=== PATIENT | male | born 1985 | race Caucasian/White ===

== ENCOUNTER 2019-03-02 20:53 | Emergency (ER) | payer MEDICAID, MEDICARE, OTHER ==
[~2019-03-02] VITALS: Ht 175.3 cm; Wt 99.8 kg
--- NOTE | 2019-03-02 21:21 | ED General ---
General Stated Complaint: PSYCH EVAL Source of Information: Patient Exam Limitations: No Limitations History of Present Illness Date Seen by Provider: Mar 02, 2019 Time Seen by Provider: 21:16 Initial Comments Very pleasant gentleman presents to the emergency room with request for psychiatric evaluation. He states that he's been feeling suicidal for about one week. He plans to take all of his pills at once. He is currently living with his uncle in [facility] where he has been performed months now, formerly from [facility]. He is a history of depression and he also states he has bipolar 1 disorder. He saw primary care for this increasing depression yesterday and was started on lithium for it. He was advised by primary care if his symptoms worsened he should present to the emergency room so he comes in tonight because of worsening suicidal thoughts. He denies any alcohol or substance abuse, occasionally smokes marijuana. He was hospitalized for inpatient [facility] in [place] about one year ago for depression and suicidal thoughts. He relates this worsening depression to a recent breakup, also states "I feel like I keep getting kicked and cant get back up on my feet, Im 33, no insurance, on disability". 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 He lives at home and is independent and able to take care of himself. Timing/Duration: 1 Week, Getting Worse Severity: Moderate Associated Systoms: Denies Symptoms Allergies and Home Medications Allergies Coded Allergies: Sulfa (Sulfonamide Antibiotics) (Verified Allergy, Unknown, 03/02/19) latex (Verified Allergy, Unknown, 03/02/19) Patient Home Medication List Home Medication List Reviewed: Yes Review of Systems Review of Systems Constitutional: see HPI EENTM: see HPI Respiratory: no symptoms reported Cardiovascular: no symptoms reported Genitourinary: no symptoms reported Musculoskeletal: no symptoms reported Skin: no symptoms reported Psychiatric/Neurological: See HPI, Depressed Past Bwrdkev-Jnwixn-Hsrroa Hx Patient Social History Recent Foreign Travel: No Contact w/Someone Who Travel: No Physical Exam Vital Signs Capillary Refill : Height, Weight, BMI Height: '" Weight: lbs. oz. kg; BMI Method: General Appearance: No Apparent Distress, WD/WN, Other (very pleasant, co operative, appreciative of care) Eyes: Right Eye Other (strabismus with right eye deviated laterally); Bilateral Eye Normal Inspection, Bilateral Eye PERRL, Bilateral Eye EOMI HEENT: TMs Normal, Normal ENT Inspection Neck: Full Range of Motion, Normal Inspection Respiratory: No Accessory Muscle Use, No Respiratory Distress Cardiovascular: Regular Rate, Rhythm, Normal Peripheral Pulses Gastrointestinal: Normal Bowel Sounds, Non Tender, Soft Extremity: Normal Capillary Refill, Normal Inspection Neurologic/Psychiatric: Alert, Oriented x3, Other (pleasant cooperative and appreciative of care) Skin: Normal Color, Warm/Dry Progress/Results/Core Measures Suspected Sepsis SIRS Temperature: Pulse: Respiratory Rate: Laboratory Tests 03/02/19 21:25: White Blood Count 11.8H Blood Pressure / Mean: Laboratory Tests 03/02/19 21:25: Creatinine 0.86, Platelet Count 229, Total Bilirubin 0.4 Results/Orders Lab Results Laboratory Tests Test 03/02/19 21:25 03/02/19 21:30 Range/Units White Blood Count 11.8 H 4.3-11.0 10^3/uL Red Blood Count 5.45 4.35-5.85 10^6/uL Hemoglobin 16.7 13.3-17.7 G/DL Hematocrit 47 40-54 % Mean Corpuscular Volume 86 80-99 FL Mean Corpuscular Hemoglobin 31 25-34 PG Mean Corpuscular Hemoglobin Concent 36 32-36 G/DL Red Cell Distribution Width 12.8 10.0-14.5 % Platelet Count 229 130-400 10^3/uL Mean Platelet Volume 10.3 7.4-10.4 FL Neutrophils (%) (Auto) 61 42-75 % Lymphocytes (%) (Auto) 24 12-44 % Monocytes (%) (Auto) 10 0-12 % Eosinophils (%) (Auto) 5 0-10 % Basophils (%) (Auto) 0 0-10 % Neutrophils # (Auto) 7.2 1.8-7.8 X 10^3 Lymphocytes # (Auto) 2.9 1.0-4.0 X 10^3 Monocytes # (Auto) 1.1 H 0.0-1.0 X 10^3 Eosinophils # (Auto) 0.6 H 0.0-0.3 10^3/uL Basophils # (Auto) 0.0 0.0-0.1 10^3/uL Sodium Level 139 135-145 MMOL/L Potassium Level 3.6 3.6-5.0 MMOL/L Chloride Level 106 98-107 MMOL/L Carbon Dioxide Level 21 21-32 MMOL/L Anion Gap 12 5-14 MMOL/L Blood Urea Nitrogen 9 7-18 MG/DL Creatinine 0.86 0.60-1.30 MG/DL Estimat Glomerular Filtration Rate > 60 BUN/Creatinine Ratio 10 Glucose Level 99 70-105 MG/DL Calcium Level 10.1 8.5-10.1 MG/DL Corrected Calcium 9.7 8.5-10.1 MG/DL Total Bilirubin 0.4 0.1-1.0 MG/DL Aspartate Amino Transf (AST/SGOT) 13 5-34 U/L Alanine Aminotransferase (ALT/SGPT) 18 0-55 U/L Alkaline Phosphatase 77 40-136 U/L Total Protein 7.6 6.4-8.2 GM/DL Albumin 4.5 3.2-4.5 GM/DL Salicylates Level < 5.0 L 5.0-20.0 MG/DL Acetaminophen Level < 10 L 10-30 UG/ML Serum Alcohol < 10 <10 MG/DL Urine Color YELLOW Urine Clarity CLEAR Urine pH 7 5-9 Urine Specific [place] 1.010 L 1.016-1.022 Urine Protein NEGATIVE NEGATIVE Urine Glucose (UA) NEGATIVE NEGATIVE Urine Ketones NEGATIVE NEGATIVE Urine Nitrite NEGATIVE NEGATIVE Urine Bilirubin NEGATIVE NEGATIVE Urine Urobilinogen NORMAL NORMAL MG/DL Urine Leukocyte Esterase 1+ H NEGATIVE Urine RBC (Auto) NEGATIVE NEGATIVE Urine RBC NONE /HPF Urine WBC NONE /HPF Urine Squamous Epithelial Cells RARE /HPF Urine Crystals NONE /LPF Urine Bacteria NEGATIVE /HPF Urine Casts NONE /LPF Urine Mucus NEGATIVE /LPF Urine Culture Indicated NO Urine Opiates Screen NEGATIVE NEGATIVE Urine Oxycodone Screen NEGATIVE NEGATIVE Urine Methadone Screen NEGATIVE NEGATIVE Urine Propoxyphene Screen NEGATIVE NEGATIVE Urine Barbiturates Screen NEGATIVE NEGATIVE Ur Tricyclic Antidepressants Screen NEGATIVE NEGATIVE Urine Phencyclidine Screen NEGATIVE NEGATIVE Urine Amphetamines Screen NEGATIVE NEGATIVE Urine Methamphetamines Screen NEGATIVE NEGATIVE Urine Benzodiazepines Screen NEGATIVE NEGATIVE Urine Cocaine Screen NEGATIVE NEGATIVE Urine Cannabinoids Screen POSITIVE H NEGATIVE My Orders Orders - ZANE DAY DEHYDRATOR OPERATOR Cbc With Automated Diff (03/02/19 21:14) Salicylate (03/02/19 21:14) Acetaminophen (03/02/19 21:14) Ekg Tracing (03/02/19 21:14) Alcohol (03/02/19 21:14) [place] Level (03/02/19 21:14) Comprehensive Metabolic Panel (03/02/19 21:14) Ua Culture If Indicated (03/02/19 21:14) Drug Screen Stat (Urine) (03/02/19 21:14) Vital Signs/I&O Capillary Refill : Departure Communication (Admissions) [id number] have spoken with Dr. Arias [facility] in [place]. She agrees to accept the patient. I'll transport via [facility] secure psychiatric transport. Impression Primary Impression: Suicidal ideations Additional Impression: Depression Qualified Codes: F33.9 - Major depressive disorder, recurrent, unspecified Disposition: 65 XFER TO PSYCH HOSP/UNIT Condition: Stable Departure-Patient Inst. Referrals: [facility]/ARACELI (PCP) Primary Care Physician ALIYA MCALLISTER (Family) Primary Care Physician ZANE DAY APRN Mar 02, 2019 21:21
[2019-03-02 21:36] LABS: BASOPHILS % (AUTO) 0 % (0-10); EOSINOPHILS # (AUTO) 0.6 10^3/uL (0.0-0.3); EOSINOPHILS % (AUTO) 5 % (0-10); HEMATOCRIT 47 % (40-54); HEMOGLOBIN 16.7 G/DL (13.3-17.7); LYMPHOCYTES # (AUTO) 2.9 X 10^3 (1.0-4.0); LYMPHOCYTES % (AUTO) 24 % (12-44); MEAN CORPUSCULAR HEMOGLOBIN 31 PG (25-34); MEAN CORPUSCULAR HGB CONC 36 G/DL (32-36); MEAN CORPUSCULAR VOLUME 86 FL (80-99); MEAN PLATELET VOLUME 10.3 FL (7.4-10.4); MONOCYTES # (AUTO) 1.1 X 10^3 (0.0-1.0); MONOCYTES % (AUTO) 10 % (0-12); NEUTROPHILS # (AUTO) 7.2 X 10^3 (1.8-7.8); NEUTROPHILS % (AUTO) 61 % (42-75); PLATELET COUNT 229 10^3/uL (130-400); RED CELL DISTRIBUTION WIDTH 12.8 % (10.0-14.5); WHITE BLOOD COUNT 11.8 10^3/uL (4.3-11.0)
[2019-03-02 21:43] LABS: BILIRUBIN,URINE NEGATIVE (NEGATIVE); CLARITY,URINE CLEAR; COLOR,URINE YELLOW; GLUCOSE, URINE (UA) NEGATIVE (NEGATIVE); KETONES,URINE NEGATIVE (NEGATIVE); LEUKOCYTE ESTERASE ,URINE 1+ (NEGATIVE); NITRITE,URINE NEGATIVE (NEGATIVE); PH,URINE 7 (5-9); PROTEIN,URINE NEGATIVE (NEGATIVE); UROBILINOGEN,URINE NORMAL (NORMAL)
[2019-03-02 21:50] LABS: BACTERIA,URINE NEGATIVE /HPF; SQUAMOUS EPITHELIAL CELL,UR RARE /HPF
--- OUTSIDE RECORDS SUMMARY | 2019-03-02 21:52 | XMS REPORT ---
Author Scooter Awad Organization [facility] Address [address] [place], [place] [id number] Care Team Providers Care Trade Clerk Name Role Phone Scooter Cartagena PCP Scooter Cartagena PreferredProvider Allergies and Adverse Reactions Name Reaction Notes SULFA (SULFONAMIDE ANTIBIOTICS) Plan of Treatment Planned Activity Comments Planned Date Planned Time Plan/Goal MRI JOINT OF UPPER EXT ANY JOINT W/O CON 03/23/2018 12:00 AM Medications Active Name Start Date Estimated Completion Date SIG Comments venlafaxine 75 mg oral capsule,extended release 24hr 03/11/2018 06/09/2018 take 1 capsule (75 mg) by oral route once daily for 30 days Zyprexa 5 mg oral tablet 03/11/2018 06/09/2018 take 1 tablet (5 mg) by oral route once daily in the evening for 30 days diclofenac sodium 75 mg oral tablet,delayed release (DR/EC) 03/23/2018 07/21/2018 take 1 tablet (75 mg) by oral route 2 times per day for 30 days Name Start Date Expiration Date SIG Comments Augmentin 875-125 mg oral tablet 04/21/2018 04/28/2018 take 1 tablet by oral route every 12 hours for 7 days Problem List Description Status Onset Mood disorder Active 03/24/2018 Bipolar 1 disorder Active 03/24/2018 Chronic left shoulder pain Active 03/24/2018 Vital Signs Date Time BP-Sys(mm[Hg] BP-Anali(mm[Hg]) HR(bpm) RR(rpm) Temp WT HT HC BMI BSA BMI Percentile O2 Sat(%) 04/21/2018 10:58:00 AM 120 mmHg 80 mmHg 68 bpm 18 rpm 97.5 F 268 lbs 97 % 03/11/2018 1:31:00 PM 110 mmHg 80 mmHg 75 bpm 16 rpm 97.6 F 264 lbs 98 % Social History Name Description Comments Tobacco History of Procedures Date Ordered Description Order Status 03/11/2018 12:00 AM DRAIN/INJ JOINT/BURSA W/O US Reviewed Results Summary Not available. History Of Immunizations Not available. History of Past Illness Name Date of Onset Comments Mood disorder 03/24/2018 Bipolar 1 disorder 03/24/2018 Chronic left shoulder pain 03/24/2018 Left shoulder pain Mar 23 2018 11:10AM Mood disorder Mar 11 2018 1:33PM Bipolar 1 disorder Mar 11 2018 1:33PM Pain in left shoulder Mar 11 2018 1:33PM Other chronic pain Mar 11 2018 1:33PM Establishing care with new doctor, encounter for Mar 11 2018 1:33PM Pain in left shoulder Mar 24 2018 2:17PM Other chronic pain Mar 24 2018 2:17PM Acute bronchitis, unspecified organism Apr 21 2018 10:59AM Payers Insurance Name Company Name Plan Name Plan Number Policy Number Policy Group Number Start Date [facility] [place] [facility] [place] [id number] N/A History of Encounters Visit Date Visit Type Provider 04/21/2018 Office visit Scooter Cartagena APRN 03/11/2018 Office visit Scooter Cartagena APRN
--- OUTSIDE RECORDS SUMMARY | 2019-03-02 21:52 | XMS REPORT | Continuity of Care Document ---
Author Author [facility] Organization [facility] Address [address] [place] [address] Phone Unavailable Care Team Providers Care Ingredient Specialist Name Role Phone TAMANNA LACKEY PA-C PCP Insurance Providers Guarantor Chase Adam Address [address] [place] [phone] Email NONE Payer [place] Medicaid Policy Number [id number] Subscriber's Name Chase Adam Relationship 18 Self / Same As Patient Advance Directives Directive Response Recorded Date/Time Advance Directives No 09/13/16 10:58pm Advance Directive on File No 02/22/18 5:06am Durable POA for HC No 02/22/18 5:06am Power of Vegetable Preparer No 02/22/18 5:06am Organ Donor No 02/22/18 5:06am Living Will No 02/22/18 5:06am Chief Complaint and Reason for Visit Chief Complaint Male Urogenital Problems Reason for Visit Epididymitis Problems Medical Problem Onset Date Status Arthralgia of left acromioclavicular joint Unknown Acute Depression with anxiety Unknown Acute Depression with suicidal ideation Unknown Acute Encounter for medical screening examination Unknown Acute Gabapentin overdose Unknown Acute Gastroenteritis Unknown Acute Medical clearance for psychiatric admission Unknown Acute Urinary tract infection, acute Unknown Acute Viral gastroenteritis Unknown Acute Past Problems Medical Problem Onset Date Status Epididymitis Unknown Acute Medications Current Home Medications Medication Dose Units Route Directions Days Qty Instructions Start Date Acetaminophen/Hydrocodone Bitart ([place] 5/325 Mg Tablet) 1 Tab Tablet 1 Each Oral Every 4 To 6 Hours As Needed as needed for Pain 10 02/22/18 Levofloxacin (Levaquin) 500 Mg Tablet 500 Mg Oral Once A Day 9 Days 9 Tablet 02/22/18 Olanzapine (Zyprexa Tablet) 5 Mg Tablet 5 Mg Oral Once A Day for Depression Venlafaxine Hcl (Effexor Xr) 75 Mg Cap.er.24h 75 Mg Oral Once A Day for Bipolar Disease 1 Tablet Past Home Medications Medication Directions Ordered Status Divalproex Sodium (Depakote) 500 Mg Tablet.dr, 1000 Mg Oral Once A Day for Seizure Discontinued Gabapentin 600 Mg Tablet, 600 Mg Oral Once A Day for Pain Discontinued Ondansetron (Zofran Odt) 4 Mg Tab.rapdis, 4 Mg Oral Every 6 To 8 Hours As Needed as needed for Nausea / Vomiting 03/18/17 Discontinued Paliperidone (Invega) 3 Mg Tab.er.24, 3 Mg Oral Once A Day for Depression Discontinued Venlafaxine Hcl (Effexor Xr) 150 Mg Cap.er.24h, 150 Mg Oral Once A Day for Depression Discontinued Social History Social History Problem Response Recorded Date/Time Onset Date Status Smoking Status Heavy Tobacco smoker 02/22/2018 5:08am Not Applicable Not Applicable Smoked in the last 12 months? No 02/22/2018 5:08am Not Applicable Not Applicable Do you dip or chew tobacco? Yes 02/22/2018 5:08am Not Applicable Not Applicable Approx how many cigs per day? 0 02/22/2018 5:08am Not Applicable Not Applicable Level of Dependence High 02/22/2018 5:08am Not Applicable Not Applicable Former smoker, last day smoked? NA 02/22/2018 5:08am Not Applicable Not Applicable Smoking Status Start Date Stop Date Heavy Tobacco smoker Hospital Discharge Instructions No hospital discharge instruction information available. Plan of Care Discharge Date 02/22/18 6:05am Disposition 01 D/C HOME Condition at Discharge Stable Instructions/Education Provided Epididymitis (AC) Forms Provided ER Discharge Phone Call Check Prescriptions See Medication Section Referrals TAMANNA LACKEY PA-C Address: [address] [place] [address] Additional Instructions/Education Take the antibiotics until gone. Use the pain medicine if needed, but it causes drowsiness and constipation. If not improved (not perfect, but much better) within 24 hours, be checked again. Care Plan and Goals Problem: Pain Goal: Decreased Pain Instructions: Follow up with Primary Care Provider & Follow Discharge Instructions given in ER. Reference Links Reference Text What is epididymitis? Epididymitis is the term doctors use when the epididymis gets inflamed. The epididymis is a small structure that sits on top of the testicle (figure 1). The epididymis stores sperm and moves it along the male reproductive tract. Different infections and conditions can cause epididymitis. In teens and men who are having sex, epididymitis is commonly caused by chlamydia or gonorrhea. These are 2 different infections that people can catch during sex. Epididymitis can also be caused by other conditions or infections that people don't catch during sex. These things are more likely to cause epididymitis in older men. What are the symptoms of epididymitis? Epididymitis causes pain in the testicles or scrotum. The scrotum is the skin sac around the testicles. Besides pain, epididymitis can also cause: ?Swelling of the scrotum or testicles ?Redness of the scrotum ?Fever Should I see my doctor or nurse? Yes. See your doctor or nurse if you have pain or swelling in your testicles or scrotum. If your pain is severe, and your doctor or nurse can't see you right away, you should go to the emergency room. Is there a test for epididymitis? Yes. Your doctor or nurse will ask about your symptoms and do an exam. He or she will also probably do: ?Urine tests ?An ultrasound of your scrotum An ultrasound is an imaging test that uses sound waves to create pictures of the inside of the body. ?Lab tests If you have discharge from your urethra (the opening in your penis where urine leaves your body), your doctor or nurse will take a sample of the discharge. He or she will send the sample to a lab for tests. Is there anything I can do on my own to feel better? Yes. To help with the pain and swelling, you can: ?Put a cold gel pack, bag of ice, or bag of frozen vegetables on the area every few hours, for 15 minutes each time. ?Wear a jock strap to support your scrotum. ?Take an lpyg-whr-konzwlx medicine to treat your pain. Frmv-ftf-ncywzfs medicines include acetaminophen (sample brand name: Tylenol), ibuprofen (sample brand names: Advil, Motrin), and naproxen (sample brand name: Aleve). What other treatment might I need? Other treatment depends on what's causing your epididymitis. If a bacterial infection is causing your epididymitis, your doctor will prescribe antibiotic medicines. Most men can take antibiotic pills at home, but men with a severe infection might need treatment in the hospital. If you are treated for chlamydia or gonorrhea, you should tell the person you last had sex with, and anyone you have had sex with in the past 2 to 3 months. They might also be infected (even if they have no symptoms) and need treatment. Can epididymitis be prevented? You can help prevent epididymitis that is caused by chlamydia or gonorrhea by: ?Using a latex condom every time you have sex ?Avoiding sex when you or your partner has genital itching, discharge, or other symptoms that could be caused by an infection ?Not having sex Functional Status Query Response Date Recorded Activities of Daily Living Performs w/o Assistance February 22, 2018 5:09am Cognitive Function Intact February 22, 2018 5:09am Allergies, Adverse Reactions, Alerts Allergen Type Severity Reaction Status Last Updated Sulfa (Sulfonamide Antibiotics) ([id number]) Allergy Severe RASH Active 09/13/16 Latex Allergy Severe SWELLING Active 09/13/16 Immunizations Query Response on File Recorded Date/Time Hx Influenza Vaccination No 02/22/18 5:27am Hx Pneumococcal Vaccination No 02/22/18 5:27am Hx Tetanus, Diphtheria Vaccination Yes 02/22/18 5:27am Vital Signs Acute Vital Signs Vital Response Date/Time Temperature (Fahrenheit) 98.3 degrees F (97.6 - 99.5) 02/22/2018 5:09am Temperature (Calculated Celsius) 36.98384 degrees C (36.4 - 37.5) 02/22/2018 5:09am Temperature Source Temporal Artery Scan 02/22/2018 5:09am Pulse Pulse Ox Pulse Rate (adult) 78 beats per minute (60 - 90) 02/22/2018 6:05am Pulse Location Modifier Left 02/22/2018 6:05am Oxygen Saturation Respiratory Rate 20 breaths per minute (12 - 24) 02/22/2018 6:05am O2 Sat by Pulse Oximetry 98 % (90 - 100) 02/22/2018 6:05am Blood Pressure 148/92 mm Hg 02/22/2018 6:05am Blood Pressure Mean 110 mm Hg 02/22/2018 6:05am Height 5 ft 9 in 02/22/2018 5:09am Weight 260 lb 02/22/2018 5:09am Body Mass Index 38.4 kg/m^2 02/22/2018 5:09am Results Laboratory Results Test Name Result Units Flags Reference Collection Date/Time Result Date/Time Comments Volume Urine Centrifuged 12 ml 02/22/2018 5:52am 02/22/2018 6:05am Test based ON 12 ml volume. Urine Color STRAW STRAW 02/22/2018 5:52am 02/22/2018 6:05am Urine Clarity HAZY A CLEAR 02/22/2018 5:52am 02/22/2018 6:05am Urine Specific Stephan 1.030 A 1.010-1.020 02/22/2018 5:52am 02/22/2018 6:05am Urine pH 5.5 5.0-6.0 02/22/2018 5:52am 02/22/2018 6:05am Urine Leukocyte Esterase MODERATE NEGATIVE 02/22/2018 5:52am 02/22/2018 6:05am Urine Nitrite NEGATIVE NEGATIVE 02/22/2018 5:52am 02/22/2018 6:05am Urine Protein 30 NEGATIVE 02/22/2018 5:52am 02/22/2018 6:05am Urine Glucose (UA) NEGATIVE NEGATIVE 02/22/2018 5:52am 02/22/2018 6:05am Urine Ketones NEGATIVE NEGATIVE 02/22/2018 5:52am 02/22/2018 6:05am Urine Urobilinogen 0.2 0.2-1.0 02/22/2018 5:52am 02/22/2018 6:05am Urine Bilirubin NEGATIVE NEGATIVE 02/22/2018 5:52am 02/22/2018 6:05am Urine Occult Blood TRACE A NEGATIVE 02/22/2018 5:52am 02/22/2018 6:05am Urine WBC 50-60 #/HPF OCCASIONAL 02/22/2018 5:52am 02/22/2018 6:05am Urine RBC 3-52 #/HPF OCCASIONAL 02/22/2018 5:52am 02/22/2018 6:05am Urine Epithelial Cells n #/HPF OCCASIONAL 02/22/2018 5:52am 02/22/2018 6:05am Urine Other Casts n #/LPF NEGATIVE 02/22/2018 5:52am 02/22/2018 6:05am Urine Bacteria 3+ A NONE 02/22/2018 5:52am 02/22/2018 6:05am Urine Other Crystals n NONE 02/22/2018 5:52am 02/22/2018 6:05am Urine Mucus n NONE 02/22/2018 5:52am 02/22/2018 6:05am Urine Culture Indicated YES A NO 02/22/2018 5:52am 02/22/2018 6:05am Procedures No procedure information available. Encounters Encounter Location Arrival/Admit Date Discharge/Depart Date Attending Provider Departed Emergency Room [facility] 02/22/18 5:06am 02/22/18 6:05am SOL GRACE MD Recent Diagnosis
--- OUTSIDE RECORDS SUMMARY | 2019-03-02 21:52 | XMS REPORT ---
Author Scooter Awad [facility] Address [address] [place], [place] [address] Care Team Providers Care Associate Vice President Name Role Phone Scooter Cartagena PCP Scooter Cartagena PreferredProvider Allergies and Adverse Reactions Name Reaction Notes SULFA (SULFONAMIDE ANTIBIOTICS) Plan of Treatment Planned Activity Comments Planned Date Planned Time Plan/Goal Abdomen 2View Decub/Upright- Main 12/03/2018 12:00 AM Medications Active Name Start Date Estimated Completion Date SIG Comments ProAir HFA 90 mcg/actuation inhalation HFA aerosol inhaler 09/17/2018 inhale 1 - 2 puffs (90 - 180 mcg) by inhalation route every 6 hours as needed Milk of Magnesia 400 mg/5 mL oral suspension 12/03/2018 take 30 milliliters by oral route 2 times per day as needed, followed by a full glass (8 oz) of liquid Senna Lax 8.6 mg oral tablet 12/03/2018 take 2 tablets by oral route once daily Name Start Date Expiration Date SIG Comments venlafaxine 75 mg oral [...] 2 times per day for 30 days Augmentin 875-125 mg oral tablet 04/21/2018 04/28/2018 take 1 tablet by oral route every 12 hours for 7 days Levaquin 750 mg oral tablet 09/17/2018 09/24/2018 take 1 tablet (750 mg) by oral route once daily for 7 days Problem List Description Status Onset Mood disorder Active 03/24/2018 Bipolar 1 disorder Active 03/24/2018 Chronic left shoulder pain Active 03/24/2018 Vital Signs Date Time BP-Sys(mm[Hg] BP-Anali(mm[Hg]) HR(bpm) RR(rpm) Temp WT HT HC BMI BSA BMI Percentile O2 Sat(%) 12/03/2018 2:21:00 PM 124 mmHg 72 mmHg 57 bpm 18 rpm 98.1 F 230 lbs 69 in 33.9647 kg/m 2.2537 m 97 % 09/17/2018 9:37:00 AM 112 mmHg 78 mmHg 64 bpm 18 rpm 97.7 F 244.312 lbs 96 % 04/21/2018 10:58:00 AM 120 mmHg 80 mmHg 68 bpm 18 rpm 97.5 F 268 lbs 97 % 03/11/2018 1:31:00 PM 110 mmHg 80 mmHg 75 bpm 16 rpm 97.6 F 264 lbs 98 % Social History Name Description Comments Tobacco History of Procedures Date Ordered Description Order Status 03/11/2018 12:00 AM DRAIN/INJ JOINT/BURSA W/O US Reviewed 09/17/2018 12:00 AM CHEST X-RAY 2VW FRONTAL&LATL Reviewed Results Summary Not available. History Of [...] bronchitis, unspecified organism Apr 21 2018 10:59AM Acute bronchitis, unspecified organism Sep 17 2018 9:40AM Constipation, unspecified constipation type Dec 03 2018 2:24PM Left upper quadrant pain Dec 03 2018 2:24PM Payers Insurance Name Company Name Plan Name Plan Number Policy Number Policy Group Number Start Date Medicare [facility] Medicare [facility] [id number] Monday, 2018 [facility] - [facility] [id number] N/A [employer] [facility] [place] [employer] [facility] [place] [id number] N/A [employer] [place] State Plan [employer] [place] State Plan [id number] N/A History of Encounters Visit Date Visit Type Provider 12/03/2018 Office visit Scooter Cartagena APRN 09/17/2018 Office visit Scooter Cartagena APRN 05/19/2018 Hospital [facility] Esquivel MD 05/10/2018 [facility] Kong Esquivel MD 04/21/2018 Office visit Scooter Cartagena APRN 03/11/2018 Office visit Scooter Cartagena APRN
--- OUTSIDE RECORDS SUMMARY | 2019-03-02 21:52 | XMS REPORT ---
Author Scooter Awad [facility] Address [address] [place], [place] [id number] Care Team Providers Care Inbound Sales Advisor Name Role Phone Scooter Cartagena PCP Scooter Cartagena PreferredProvider Allergies and Adverse Reactions Name Reaction Notes SULFA (SULFONAMIDE ANTIBIOTICS) Plan of Treatment Not available. Medications Active Name Start Date Estimated Completion Date SIG Comments Levaquin 750 mg oral tablet 09/17/2018 09/24/2018 take 1 tablet (750 mg) by oral route once daily for 7 days ProAir HFA 90 mcg/actuation inhalation HFA aerosol inhaler 09/17/2018 inhale 1 - 2 puffs (90 - 180 mcg) by inhalation route every 6 hours as needed Name Start Date Expiration Date SIG Comments [...] HC BMI BSA BMI Percentile O2 Sat(%) 09/17/2018 9:37:00 AM 112 mmHg 78 mmHg [...] 09/17/2018 12:00 AM CHEST X-RAY 2VW FRONTAL&LATL Returned Results Summary Not available. History Of Immunizations [...] bronchitis, unspecified organism Sep 17 2018 9:40AM Payers Insurance Name Company Name Plan Name Plan Number Policy Number Policy Group Number Start Date [facility] [id number] N/A [facility] [place] State Plan [facility] State Plan [id number] N/A [employer] [place] State [place] [employer] [place] State Plan [id number] N/A History of Encounters Visit Date Visit Type Provider 09/17/2018 Office visit Scooter Cartagena APRN 05/19/2018 Hospital Kong Esquivel MD 05/10/2018 Hospital Kong Esquivel MD 04/21/2018 Office visit Scooter Cartagena APRN 03/11/2018 Office visit Scooter Cartagena APRN
--- OUTSIDE RECORDS SUMMARY | 2019-03-02 21:52 | XMS REPORT ---
Author Scooter Awad [facility] Address [address] [place], [place] [id number] Care Team Providers Care Hassock Maker Name Role Phone Scooter Cartagena PCP Scooter [...] bronchitis, unspecified organism Sep 17 2018 9:40AM Constipation Dec 03 2018 2:24PM Payers Insurance Name Company Name Plan Name Plan Number Policy Number Policy Group Number Start Date Medicare RH Medicare RHC [id number] Monday, 2018 [id number] [id number] N/A [employer] - RHC - [place] State Plan [employer] [facility] [id number] N/A [employer] [place] State [place] [employer] [place] State [place] [id number] N/A History of Encounters Visit Date Visit Type Provider 12/03/2018 Office visit Scooter Cartagena APRN 09/17/2018 Office visit Scooter Cartagena APRN 05/19/2018 Hospital Kong Esquivel MD 05/10/2018 [facility] Kong Esquivel MD 04/21/2018 Office visit Scooter Cartagena APRN 03/11/2018 Office visit Scooter Cartagena APRN
--- OUTSIDE RECORDS SUMMARY | 2019-03-02 21:52 | XMS REPORT ---
Author Author Scooter Cartagena [facility] Address [address] [place], [place] [id number] Care Team Providers Care Recording Artist Name Role Phone Scooter Cartagena PCP Scooter Cartagena PreferredProvider Allergies and Adverse Reactions Name Reaction Notes No known history of drug allergy Plan of Treatment Planned Activity Comments Planned [...] 2 times per day for 30 days Problem List Not available. Vital Signs Date Time BP-Sys(mm[Hg] BP-Anali(mm[Hg]) HR(bpm) RR(rpm) Temp WT HT HC BMI BSA BMI Percentile O2 Sat(%) 03/11/2018 1:31:00 PM 110 mmHg 80 mmHg 75 bpm 16 rpm 97.6 F 264 lbs 98 % Social History Name Description Comments Tobacco History of Procedures Not available. Results Summary Not available. History Of Immunizations Not available. 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
--- OUTSIDE RECORDS SUMMARY | 2019-03-02 21:52 | XMS REPORT ---
Author Author TAMANNA LACKEY [facility] Address [address] [place] [address] Care Team Providers Care Aquarium Tank Attendant Name Role Phone TAMANNA LACKEY Unavailable PROBLEMS Type Condition ICD9-CM Code [id number] Code Onset Dates Condition Status SNOMED Code Problem Gastroesophageal reflux disease, esophagitis presence not specified K21.9 Active 538420876 Problem Pain in left shoulder M25.512 Active 79529702 Problem Mild persistent asthma without complication J45.30 Active 945058255 Problem Mixed hyperlipidemia E78.2 Active 984643472 ALLERGIES No Information SOCIAL HISTORY Never Assessed PLAN OF CARE VITAL SIGNS MEDICATIONS No Known Medications RESULTS No Results PROCEDURES Procedure Date Ordered Result Body Site LIPID PANEL January 20, 2017 COMPREHEN METABOLIC PANEL January 20, 2017 ASSAY THYROID STIM HORMONE January 20, 2017 COMPLETE CBC W/AUTO DIFF WBC January 20, 2017 VENIPUNCT, ROUTINE* January 20, 2017 IMMUNIZATIONS No Known Immunizations MEDICAL (GENERAL) HISTORY Type Description Date Medical History bipolar Medical History anxiety Medical History asthma Medical History spine issues Surgical History heart surgery x2 () Surgical History reconstructed anus (infant) Surgical History bowel surgery (age 18) Surgical History tethered spinal chord (age 11) Surgical History tubes in ears Hospitalization History surgeries Hospitalization History mental health Hospitalization History bowel blockages (multiple hosp)
--- OUTSIDE RECORDS SUMMARY | 2019-03-02 21:52 | XMS REPORT ---
Author Author Scooter Cartagena [facility] Address [address] [place], [place] [id number] Care Team Providers Care Life Skills Consultant Name Role Phone Scooter Cartagena PCP Scooter [...] per day for 30 days Problem List Description Status Onset Mood [...] Other chronic pain Mar 24 2018 2:17PM Payers Insurance Name Company Name Plan Name Plan Number Policy Number Policy Group Number Start Date [facility] [place] State Plan [facility] [place] State Plan [id number] N/A History of Encounters Visit Date Visit Type Provider 03/11/2018 Office visit Scooter Cartagena APRN
--- OUTSIDE RECORDS SUMMARY | 2019-03-02 21:53 | XMS REPORT | Continuity of Care Document ---
Author Author [facility] Organization [facility] Address [address] [place] [address] Phone Unavailable Care Team Providers Care Supervisor Fine Grading Name Role Phone TAMANNA LACKEY PA-C PCP Insurance Providers Payer Name Policy Number Subscriber Name Relationship Self Pay Chase Adam 18 Self / Same As Patient Advance Directives Directive Response Recorded Date/Time Advance Directives No 09/13/16 10:58pm Advance Directive on File No 03/21/17 11:39pm Durable POA for HC No 03/21/17 11:39pm Power of Relocation Associate No 03/21/17 11:39pm Organ Donor No 03/21/17 11:39pm Living Will No 03/21/17 11:39pm Chief Complaint and Reason for Visit Chief Complaint Male Urogenital Problems Reason for Visit Viral gastroenteritis Problems Active Problems Medical Problem Onset Date Status Arthralgia of left acromioclavicular joint Unknown Acute Depression with anxiety Unknown Acute Depression with suicidal ideation Unknown Acute Encounter for medical screening examination Unknown Acute Gabapentin overdose Unknown Acute Gastroenteritis Unknown Acute Medical clearance for psychiatric admission Unknown Acute Urinary tract infection, acute Unknown Acute Viral gastroenteritis Unknown Acute Medications Current Home Medications Medication Dose Units Route Directions Days/Qty Instructions Start Date Divalproex Sodium 500 Mg 1,000 Mg Oral Once A Day for Seizure 09/24/16 Lurasidone Hcl 80 Mg 40 Mg Oral Once A Day for Depression 03/18/17 Desvenlafaxine Succinate 50 Mg 50 Mg Oral Once A Day for Anxiety 03/18/17 Ciprofloxacin Hcl 500 Mg 500 Mg Oral Twice A Day 03/18/17 Ondansetron 4 Mg 4 Mg Oral Every 6 To 8 Hours As Needed as needed for Nausea / Vomiting 03/18/17 Diphenoxylate Hcl/Atropine 1 Each 1 Each Oral .. 15 1 tablet after each loose stool, up to 6 a day 03/21/17 Promethazine Hcl 25 Mg 25 Mg Oral Every 4 To 6 Hours As Needed as needed for Nausea / Vomiting 03/21/17 Past Home Medications Medication Directions Ordered Status Venlafaxine Hcl 150 Mg Cap.er.24h, 150 Mg Oral Once A Day for Depression 09/24/16 Discontinued Divalproex Sodium 500 Mg Tablet.dr, 1000 Mg Oral Once A Day for Seizure 09/24/16 Discontinued Gabapentin 600 Mg Tablet, 600 Mg Oral Once A Day for Pain 09/24/16 Discontinued Paliperidone 3 Mg Tab.er.24, 3 Mg Oral Once A Day for Depression 09/24/16 Discontinued Social History Social History Problem Response Recorded Date/Time Smoking Status Former smoker 03/21/2017 11:39pm Smoked in the last 12 months? No 03/21/2017 11:39pm Do you dip or chew tobacco? Yes 03/21/2017 11:39pm Approx how many cigs per day? 0 03/21/2017 11:39pm Level of Dependence Low 03/21/2017 11:39pm Former smoker, last day smoked? 07/201603/21/2017 11:39pm Query Response Start Date Stop Date Smoking Status Former smoker Hospital Discharge Instructions No hospital discharge instructions. Plan of Care Discharge Date 03/22/17 12:05am Disposition 01 D/C HOME Condition at Discharge Stable Instructions/Education Provided Acute Nausea and Vomiting (ED) Forms Provided ER Discharge Phone Call Check Prescriptions See Medication Section Referrals TAMANNA LACKEY PA-C - Additional Instructions/Education Take only clear liquids in small amounts. Sports drinks like Gatorade are best, as they contain some potassium and sodium. Drink only 1 tablespoon at a time, every 15 - 20 minutes. If that stays down well 3 or 4 times, increase to 2 tablespoons at a time, and keep increasing until you get to 4 tablespoons. If you can keep that down well, you can start solids, like toast or crackers. Reference Links Reference Text What is dehydration? Dehydration is the term doctors use when the body loses too much water. Losing too much water is a problem, because our bodies need a certain amount of water to work normally. Another word your doctor might use when you lose too much water is "hypovolemia." Dehydration can be mild or severe. Mild dehydration doesn't usually cause problems. But if mild dehydration isn't treated, it can get worse. Severe dehydration is a medical emergency and can be life-threatening. What causes dehydration? Dehydration happens when your body loses more water than you take in from drinking and eating. It's normal for people to lose some water from their bodies every day, for example, in their urine and bowel movements. But some things make people lose a lot of water, including: ?Vomiting ?Diarrhea ?Sweating a lot from heavy exercise ?A high fever ?Medicines called "diuretics" or "laxatives" Diuretics make people urinate a lot. Laxatives can cause a lot of watery bowel movements. Some things keep people from taking in enough water. For example, people might not drink or eat if they have an upset stomach or sore throat. What are the symptoms of dehydration? People with mild dehydration might not notice any symptoms. As dehydration gets worse, it can cause symptoms such as: ?Feeling thirsty ?Urinating less often, or having dark yellow or brown urine ?A dry mouth or cracked lips ?No tears when a child cries ?Feeling tired or confused ?Feeling dizzy or light-headed ?Eyes that look sunken in the face ?A "sunken fontanel" (in babies) A fontanel is a gap between the bones in a baby's skull. When babies are dehydrated, the fontanel on the top of their head can look or feel caved in. Severe dehydration can make people stop breathing normally or go into a coma. Should I call a doctor or nurse? Call the doctor or nurse if you or your child has any symptoms of dehydration. You should also call if you or your child: ?Has diarrhea that lasts more than a few days ?Has vomiting that lasts more than one day ?Can't keep any fluids down ?Vomits blood or has bloody diarrhea ?Is urinating much more than usual ?Hasn't had anything to drink in many hours ?Hasn't needed to urinate in the past 6 to 8 hours (in adults and older children), or if your baby or young child hasn't had a wet diaper for 4 to 6 hours Is there a test for dehydration? Yes. Doctors can do blood and urine tests to check for dehydration and see how severe it is. Your doctor might also do tests to look for the cause of the dehydration. How is dehydration treated? Dehydration is treated with fluids. People with severe dehydration usually need to be treated in the hospital. Treatment involves getting fluids through an "IV," which is a thin tube that goes into the vein. People with mild dehydration can usually treat it on their own by drinking fluids. You'll know that the treatment is working when: ?You urinate more often and your urine looks pale yellow or clear. ?Your baby has more wet diapers. Some fluids help treat dehydration better than water, because they give the body the right amount of water and salts. People should use the following fluids to treat dehydration: ?Older children and adults can use sports drinks. ?You should give your baby or young child an "oral rehydration solution," such as Pedialyte. You can buy this in a store or pharmacy. Try to give your child a few teaspoons of fluid every few minutes. If your baby won't drink it from a bottle or cup, you can feed him or her with a spoon or syringe. ?Babies who breastfeed should continue to breastfeed. Can dehydration be prevented? Yes. To help prevent dehydration, you can: ?Drink plenty of fluids, especially if you are sick and have a fever. ?Give your baby or young child an oral rehydration solution as soon as he or she starts vomiting or having diarrhea. ?Drink extra fluids when you exercise or when it's hot out. Functional Status Query Response Date Recorded Activities of Daily Living Performs w/o Assistance March 21, 2017 11:40pm Cognitive Function Intact March 21, 2017 11:40pm Allergies, Adverse Reactions, Alerts Allergen Type Severity Reaction Status Last Updated Sulfa (Sulfonamide Antibiotics) ([id number]) Allergy Severe RASH Active 09/13/16 Latex Allergy Severe SWELLING Active 09/13/16 Immunizations No immunization records. Vital Signs Acute Vital Signs Vital Response Date/Time Temperature (Fahrenheit) 97 degrees F (97.6 - 99.5) 03/21/2017 11:40pm Temperature (Calculated Celsius) 36.1140 degrees C (36.4 - 37.5) 03/21/2017 11:40pm Temperature Source Temporal Artery Scan 03/21/2017 11:40pm Pulse Pulse Ox Pulse Rate (adult) 87 beats per minute (60 - 90) 03/21/2017 11:40pm Pulse Location Modifier Right 03/18/2017 5:29pm Oxygen Saturation Respiratory Rate 20 breaths per minute (12 - 24) 03/21/2017 11:40pm O2 Sat by Pulse Oximetry 96 % (90 - 100) 03/21/2017 11:40pm Blood Pressure 125/78 mm Hg 03/21/2017 11:40pm Blood Pressure Mean 94 mm Hg 03/21/2017 11:40pm Height 5 ft 9 in Weight 267 lb Body Mass Index 39.4 kg/m^2 Results Laboratory Results Test Name Result Units Flags Reference Collection Date/Time Result Date/Time Comments White Blood Count 9.6 x10^3/uL 4.0-11.0 09/13/2016 10:58pm 09/13/2016 11:21pm Red Blood Count 5.76 10^6/uL 4.50-6.50 09/13/2016 10:58pm 09/13/2016 11:21pm Hematocrit 47.9 % 40.0-54.0 09/13/2016 10:58pm 09/13/2016 11:21pm Mean Corpuscular Volume 83 fl 76-96 09/13/2016 10:58pm 09/13/2016 11:21pm Mean Corpuscular Hemoglobin 29.5 pg 27.0-32.0 09/13/2016 10:58pm 09/13/2016 11:21pm Mean Corpuscular Hemoglobin Concent 35.5 g/dl H 31.0-35.0 09/13/2016 10:58pm 09/13/2016 11:21pm Red Cell Distribution Width 13.2 % 11.0-16.0 09/13/2016 10:58pm 09/13/2016 11:21pm Platelet Count 205 10^3/uL 150-400 09/13/2016 10:58pm 09/13/2016 11:21pm Mean Platelet Volume 10.8 fl H 6.0-10.0 09/13/2016 10:58pm 09/13/2016 11:21pm Neutrophils (%) (Auto) 45.3 % 45.0-70.0 09/13/2016 10:58pm 09/13/2016 11:21pm Lymphocytes (%) (Auto) 39.2 % 20.0-40.0 09/13/2016 10:58pm 09/13/2016 11:21pm Monocytes (%) (Auto) 11.5 % H 3.0-10.0 09/13/2016 10:58pm 09/13/2016 11:21pm Eosinophils (%) (Auto) 3.8 % 1.0-5.0 09/13/2016 10:58pm 09/13/2016 11:21pm Basophils (%) (Auto) 0.2 % 0.0-0.5 09/13/2016 10:58pm 09/13/2016 11:21pm Neutrophils # (Auto) 4.25 x10^3/uL 2.00-7.50 09/13/2016 10:58pm 09/13/2016 11:21pm Lymphocytes # (Auto) 3.76 x10^3/uL 1.50-4.00 09/13/2016 10:58pm 09/13/2016 11:21pm Monocytes # (Auto) 1.20 x10^3/uL H 0.20-0.80 09/13/2016 10:58pm 09/13/2016 11:21pm Eosinophils # (Auto) 0.36 x10^3/uL 0.04-0.40 09/13/2016 10:58pm 09/13/2016 11:21pm Basophils # (Auto) 0.02 x10^3/uL 0.02-0.10 09/13/2016 10:58pm 09/13/2016 11:21pm Sodium Level 138 mmol/L 137-145 09/13/2016 10:58pm 09/13/2016 11:33pm Potassium Level 3.8 mmol/L 3.5-5.1 09/13/2016 10:58pm 09/13/2016 11:33pm Carbon Dioxide Level 31.8 mmol/L H 22-30 09/13/2016 10:58pm 09/13/2016 11:33pm Anion Gap 8.0 mEq/L 8-16 09/13/2016 10:58pm 09/13/2016 11:33pm Blood Urea Nitrogen 13 mg/dL 9-20 09/13/2016 10:58pm 09/13/2016 11:33pm Creatinine 1.12 mg/dl 0.66-1.25 09/13/2016 10:58pm 09/13/2016 11:33pm Est Glomerular Filtrat Rate mL/min 76.47 09/13/2016 10:58pm 09/13/2016 11:33pm GFR NORMALS: Stage I: GFR >90 Stage II GFR 60-89 Stage III GFR 30-60 Stage IV: GFR 15-29 Stage V: GFR <15 BUN/Creatinine Ratio 11.60 09/13/2016 10:58pm 09/13/2016 11:33pm Glucose Level 98 mg/dL 74-106 09/13/2016 10:58pm 09/13/2016 11:33pm Calculated Osmolality 285.6 mosm/kg 273-304 09/13/2016 10:58pm 09/13/2016 11:33pm Calcium Level 8.9 mg/dL 8.4-10.2 09/13/2016 10:58pm 09/13/2016 11:33pm Magnesium Level 1.9 mg/dl 1.6-2.3 09/13/2016 11:01pm 09/13/2016 11:31pm Total Bilirubin 0.3 mg/dL 0.2-1.3 09/13/2016 10:58pm 09/13/2016 11:33pm Aspartate Amino Transf (AST/SGOT) 24 U/L 17-59 09/13/2016 10:58pm 09/13/2016 11:33pm Alanine Aminotransferase (ALT/SGPT) 63 U/L 21-72 09/13/2016 10:58pm 09/13/2016 11:33pm Alkaline Phosphatase 95 U/L 38-126 09/13/2016 10:58pm 09/13/2016 11:33pm Total Protein 8.5 g/dL H 6.4-8.4 09/13/2016 10:58pm 09/13/2016 11:33pm Albumin 4.1 g/dL 3.4-5.5 09/13/2016 10:58pm 09/13/2016 11:33pm Globulin 4.4 H 2.3-3.5 09/13/2016 10:58pm 09/13/2016 11:33pm Albumin/Globulin Ratio 0.931 09/13/2016 10:58pm 09/13/2016 11:33pm Acetaminophen Level < 5 ug/mL L 10-30 09/13/2016 10:58pm 09/13/2016 11:33pm Pending Laboratory Results Test Name Collection Date/Time Procedures Procedure Status Date Provider(s) ELECTROCARDIOGRAM REPORT Completed 09/13/16 EMERGENCY DEPT VISIT Completed 09/13/16 THER/PROPH/DIAG INJ IV PUSH Completed 09/13/16 TX/PRO/DX INJ NEW DRUG ADDON Completed 09/13/16 HYDRATE IV INFUSION ADD-ON Completed 09/13/16 EMERGENCY DEPT VISIT Completed 09/24/16 ELECTROCARDIOGRAM REPORT Completed 09/24/16 ROUTINE VENIPUNCTURE Completed 03/18/17 COMPREHEN METABOLIC PANEL Completed 03/18/17 URINALYSIS NONAUTO W/SCOPE Completed 03/18/17 ASSAY OF LIPASE Completed 03/18/17 COMPLETE CBC W/AUTO DIFF WBC Completed 03/18/17 URINE BACTERIA CULTURE Completed 03/18/17 THER/PROPH/DIAG INJ IA Completed 03/18/17 EMERGENCY DEPT VISIT Completed 03/18/17 EMERGENCY DEPT VISIT Completed 03/18/17 INFUSION, NORMAL SALINE SOLUTION , 1000 CC Completed 03/18/17 THER/PROPH/DIAG INJ IV PUSH Completed 03/18/17 TX/PRO/DX INJ NEW DRUG ADDON Completed 03/18/17 HYDRATE IV INFUSION ADD-ON Completed 03/18/17 Encounters Encounter Location Arrival/Admit Date Discharge/Depart Date Attending Provider Departed Emergency Room [facility] 03/21/17 11:35pm 03/22/17 12:05am SOL GRACE MD Departed Emergency Room [facility] 03/18/17 3:30pm 03/18/17 5:34pm GHADA LOCKE APRN Departed Emergency Room [facility] 09/24/16 4:35pm 09/24/16 9:50pm GHADA LOCKE APRN Departed Emergency Room [facility] 09/13/16 10:55pm 09/14/16 12:36am CRISTIAN GARCIA APRN Recent Diagnosis
--- OUTSIDE RECORDS SUMMARY | 2019-03-02 21:53 | XMS REPORT | Continuity of Care Document ---
Author Author [facility]. Organization [facility]. Address [address] [place] [address] Phone Unavailable Care Team Providers Care Flocculator Operator Name Role Phone Dwight Carter MD Unavailable Insurance Providers Payer Name Policy Number Subscriber Name Relationship MEDICAID [place] [id number] SAMSON OWENS SELF / SAME PATIENT Advance Directives Directive Response Recorded Date/Time Advance Directives: No 07/22/17 9:22pm Chief Complaint and Reason for Visit Reason for Visit Problems Active Medical Problems Problem Onset Date Recorded Date Status Abdominal pain Unknown 04/29/17 Active Colitis Unknown 04/29/17 Active C. difficile colitis Unknown 07/22/17 Active Medications Current Home Medications Medication Dose Units Route Directions Days/Qty Instructions Start Date Desvenlafaxine ER (Pristiq) 50 MG TABLET 50 MG By Mouth Once a day Divalproex ER (Depakote ER) 500 MG TAB.SR.24H 1,000 MG By Mouth Once a day HYDROcodone/Acetaminophen (Bazine) 5 MG/325 MG TABLET 1 TAB By Mouth Q4-6 HR as needed for Pain 10 07/22/17 Lurasidone (Latuda) 40 MG TABLET 40 MG By Mouth Once a day Ondansetron (Zofran ODT) 4 MG ODT 4 MG By Mouth Three times daily as needed for nausea 10 07/22/17 Vancomycin (Vancocin) 125 MG CAPSULE 125 MG By Mouth Four times a day 56 07/22/17 Past Home Medications Medication Directions Ordered Status Ciprofloxacin (Cipro) 500 Mg Tablet Tablet, 500 Mg By Mouth Twice daily 04/29/17 Discontinued Hydrocodone/Acetaminophen (Bazine) 5 Mg/325 Mg Tablet Tablet, 1 Tab By Mouth Q4- 6 HR as needed for Pain 06/18/17 Discontinued Hydrocodone/Acetaminophen (Bazine) 5 Mg/325 Mg Tablet Tablet, 1 Tab By Mouth Q4- 6 HR as needed for Pain 04/29/17 Discontinued Vancomycin (Vancocin) 125 Mg Capsule Capsule, 125 Mg By Mouth Four times a day 06/18/17 Discontinued Metronidazole (Flagyl) 500 Mg Tablet Tablet, 500 Mg By Mouth Three times daily 04/29/17 Discontinued Family History Relationship Name Date of Condition Age ( At Onset ) Cause of Age ( At ) Age Gender Recorded Date/Time FATHER Family history of diabetes mellitus M 04/29/17 1843 Social History Query Response Start Date Stop Date Smoking status: Former smoker Hospital Discharge Instructions No hospital discharge instructions. Plan of Care Discharge Date 07/22/17 Disposition 01-HOME, SELF-CARE,ASST LIVING Condition at Discharge Stable Instructions/Education Provided Clostridium difficile Prescriptions See Medications Section Referrals Dwight Carter MD - Additional Instructions/Education 1. Return to the ER for worsening pain, fever, inability to take antibiotics or drink liquids, blood in stool or for any other concerns. 2. Please keep your follow up appointment with Dr. Verma Some of your test results may not be complete prior to your leaving the Emergency Department. The Emergency Department is not authorized to give test results over the phone. Please contact the doctor's office listed on this form for your final results. Follow up with your primary care physician or return to the Emergency Department for worsening or worrisome symptoms. * Emergency Department phone number: [phone] MEDICAL RECORD If you need copies of your X-rays, call [phone]. If you need copies of your medical record, including lab results, a signed authorization for release of records will be required. A telephone call for release of Health Information is not allowed. BILLING Billing can sometimes be confusing and frustrating. To help avoid confusion in the future, please take a moment to acquaint yourself with the billing parties for services. SERVICE BILLING [employer] [facility] ED Phys[facility] Services [phone] X-rays [facility] Patients will receive bills for services from the appropriate provider. If you have any questions about your [facility] bill, our staff will be happy to assist you. Please call [phone] and ask for the billing department. THANK YOU for [facility] as your emergency care provider. Care Plan and Goals ~~Discharge Care Plan~~ Problem: C. DIFFICILE COLITIS Goal: Decrease in nausea, vomiting or diarrhea Instructions: Encourage fluids approximately 6-8 glasses of water or noncarbonated fluids. Take medication(s) as directed. Follow home discharge instructions. Follow up with primary care physicians or entry engineer as directed. Functional Status Query Response Date Recorded Hand Manager Ccu Equal: Y July 22, 2017 9:36pm Allergies, Adverse Reactions, Alerts Allergen Type Severity Reaction Status Last Updated Sulfa (Sulfonamide Antibiotics) Allergy Unknown rash Active 07/22/17 latex Allergy Severe swelling Active 07/22/17 Immunizations No Known History of Immunizations. Vital Signs Vital Reading Collection Date/Time Result Blood Pressure 07/22/17 10:52pm 135/102 Blood Pressure Source 07/22/17 10:52pm Supine Temperature 07/22/17 9:22pm 97.6 F Temperature Source 07/22/17 9:22pm Oral Respiratory Rate 07/22/17 10:52pm 18 Pulse Rate 07/22/17 10:52pm 105 Pulse Location 07/22/17 10:52pm Pulse Oximetry Bedside Pulse Oximetry 07/22/17 10:52pm 100 Height 07/22/17 9:22pm 5 ft 9.02 in Height 07/22/17 9:22pm 175.3 cm Weight 07/22/17 9:22pm 261.4 lb Weight 07/22/17 9:22pm 118.8 kg Body Mass Index 07/22/17 9:22pm 38.7 kg/m2 Results Laboratory Results Test Name Result Units Flags Reference Collection Date/Time Result Date/Time Comments Urine Collection Type CLEAN CATCH 07/22/17 10:00pm 07/22/17 10:17pm Urine Color Adela 07/22/17 10:00pm 07/22/17 10:38pm Urine Appearance Clear 07/22/17 10:00pm 07/22/17 10:38pm Urine Specific [place] 1.030 1.005-1.035 07/22/17 10:00pm 07/22/17 10:38pm Urine pH 5 5-8 07/22/17 10:00pm 07/22/17 10:38pm Urine Protein 1+ H NEGATIVE 07/22/17 10:00pm 07/22/17 10:38pm Urine Glucose Negative NEGATIVE 07/22/17 10:00pm 07/22/17 10:38pm Urine Ketones Trace H NEGATIVE 07/22/17 10:00pm 07/22/17 10:38pm Urine Bilirubin Negative NEGATIVE 07/22/17 10:00pm 07/22/17 10:38pm Urine Urobilinogen Negative mg/dL NEGATIVE 07/22/17 10:00pm 07/22/17 10:38pm Urine Nitrate Negative NEGATIVE 07/22/17 10:00pm 07/22/17 10:38pm Urine Blood Negative NEGATIVE 07/22/17 10:00pm 07/22/17 10:38pm Urine Leukocyte Esterase Negative NEGATIVE 07/22/17 10:00pm 07/22/17 10:38pm Urine WBC 0-2 /hpf 07/22/17 10:00pm 07/22/17 10:38pm Urine RBC 0-2 /hpf 07/22/17 10:00pm 07/22/17 10:38pm Urine Squamous Epithelial Cells 0-2 /hpf 07/22/17 10:00pm 07/22/17 10:38pm Urine Mucus Present /lpf 07/22/17 10:00pm 07/22/17 10:38pm Urine Bacteria None Seen /hpf 07/22/17 10:00pm 07/22/17 10:38pm White Blood Count 9.8 K/mm3 4.8-10.8 07/22/17 9:50pm 07/22/17 9:56pm Red Blood Count 5.91 M/mm3 H 4.20-5.60 07/22/17 9:50pm 07/22/17 9:56pm Hemoglobin 17.8 g/dl 13.5-18.0 07/22/17 9:50pm 07/22/17 9:56pm Hematocrit 50.4 % 42.0-52.0 07/22/17 9:50pm 07/22/17 9:56pm Mean Corpuscular Volume 85 fl 80.0-100.0 07/22/17 9:50pm 07/22/17 9:56pm Mean Corpuscular Hemoglobin 30 pg 27.0-31.0 07/22/17 9:50pm 07/22/17 9:56pm Mean Corpuscular Hemoglobin Concent 35 g/dl 33.0-37.0 07/22/17 9:50pm 07/22/17 9:56pm Red Cell Distribution Width 12.2 % 11.5-14.5 07/22/17 9:50pm 07/22/17 9:56pm Platelet Count 230 K/mm3 130-400 07/22/17 9:50pm 07/22/17 9:56pm Mean Platelet Volume 10.5 fl H 7.4-10.4 07/22/17 9:50pm 07/22/17 9:56pm Granulocytes (%) 45.2 % 42.2-75.2 07/22/17 9:50pm 07/22/17 9:56pm Lymphocytes % 35.3 % 20.0-51.0 07/22/17 9:50pm 07/22/17 9:56pm Monocytes % 12.4 % H 1.7-9.3 07/22/17 9:50pm 07/22/17 9:56pm Eosinophils % 5.9 % H 0-4.0 07/22/17 9:50pm 07/22/17 9:56pm Basophils % 0.9 % 0.0-2.0 07/22/17 9:50pm 07/22/17 9:56pm Granulocytes # 4.4 1.4-6.5 07/22/17 9:50pm 07/22/17 9:56pm Lymphocytes # 3.5 H 1.2-3.4 07/22/17 9:50pm 07/22/17 9:56pm Monocytes # 1.2 H 0.1-0.6 07/22/17 9:50pm 07/22/17 9:56pm Eosinophils # 0.6 0.0-0.7 07/22/17 9:50pm 07/22/17 9:56pm Basophils # 0.1 0.0-0.2 07/22/17 9:50pm 07/22/17 9:56pm Glucose Level 92 mg/dL 74-106 07/22/17 9:50pm 07/22/17 10:11pm Blood Urea Nitrogen 9 mg/dL 9-20 07/22/17 9:50pm 07/22/17 10:11pm Creatinine 0.87 mg/dL 0.66-1.25 07/22/17 9:50pm 07/22/17 10:11pm Estimated GFR () 123 07/22/17 9:50pm 07/22/17 10:11pm Estimated GFR (Non- 102 07/22/17 9:50pm 07/22/17 10:11pm eGFR Interpretation: Chronic Kidney Disease=CKD CKD STAGE I > or=90 mL/min/1.73 square meters STAGE II 60 - 89 STAGE III 30 - 59 STAGE IV 15 - 29 STAGE V <15 NOTE: The MDRD Study equation has not been validated for use with the elderly (over 70 years of age), women, patients with serious comorbid conditions, or persons with extremes of body size, muscle mass, or nutritional status. Sodium Level 141 mmol/L 137-145 07/22/17 9:50pm 07/22/17 10:11pm Potassium Level 3.5 mmol/L 3.4-5.0 07/22/17 9:50pm 07/22/17 10:11pm Chloride Level 105 mmol/L 98-107 07/22/17 9:50pm 07/22/17 10:11pm Carbon Dioxide Level 25 mmol/L 22-30 07/22/17 9:50pm 07/22/17 10:11pm Anion Gap 12 mmol/L 7-16 07/22/17 9:50pm 07/22/17 10:11pm Calcium Level 9.7 mg/dL 8.4-10.2 07/22/17 9:50pm 07/22/17 10:11pm Calcium Adjusted for Albumin 8.9 mg/dL 8.4-10.2 07/22/17 9:50pm 07/22/17 10:11pm Serum Total Protein 8.3 gm/dL H 6.4-8.2 07/22/17 9:50pm 07/22/17 10:11pm Albumin 5.0 gm/dL 3.5-5.0 07/22/17 9:50pm 07/22/17 10:11pm Total Bilirubin 1.0 mg/dL 0.0-1.0 07/22/17 9:50pm 07/22/17 10:11pm Aspartate Amino Transf (AST/SGOT) 72 U/L H 15-37 07/22/17 9:50pm 07/22/17 10:11pm Alanine Aminotransferase (ALT/SGPT) 126 U/L H 21-72 07/22/17 9:50pm 07/22/17 10:11pm Alkaline Phosphatase 97 U/L 50-136 07/22/17 9:50pm 07/22/17 10:11pm Lipase 103 U/L 23-300 07/22/17 9:50pm 07/22/17 10:11pm Procedures No Known History of Procedures. Encounters Encounter Location Arrival/Admit Date Discharge/Depart Date Attending Provider Departed Emergency [facility] 07/22/17 9:20pm 07/22/17 10:56pm Nivia Mulligan MD Encounter Diagnosis Onset Date C. difficile colitis
--- OUTSIDE RECORDS SUMMARY | 2019-03-02 21:53 | XMS REPORT | Continuity of Care Document ---
Author Author [facility]. Organization [facility]. Address [address] [place] [address] Phone Unavailable Care Team Providers Care Ore Miner Blasting Name Role Phone Patient States, No PCP Unavailable Unavailable Insurance Providers Payer Name Policy Number Subscriber Name Relationship MEDICAID [place] [id number] SAMSON OWENS SELF / SAME PATIENT Advance Directives Directive Response Recorded Date/Time Advance Directives: No 04/29/17 6:23pm Chief Complaint and Reason for Visit Reason for Visit Problems Active Medical Problems Problem Onset Date Recorded Date Status Abdominal pain Unknown 04/29/17 Active Colitis Unknown 04/29/17 Active Medications Current Home Medications Medication Dose Units Route Directions Days/Qty Instructions Start Date Ciprofloxacin (Cipro) 500 MG TABLET 500 MG By Mouth Twice daily 20 04/29/17 Desvenlafaxine ER (Pristiq) 50 MG TABLET 50 MG By Mouth Once a day Divalproex ER (Depakote ER) 500 MG TAB.SR.24H 1,000 MG By Mouth Once a day HYDROcodone/Acetaminophen ([place]) 5 MG/325 MG TABLET 1 TAB By Mouth Q4-6 HR as needed for Pain 10 04/29/17 Lurasidone (Latuda) 40 MG TABLET 40 MG By Mouth Once a day metroNIDAZOLE (Flagyl) 500 MG TABLET 500 MG By Mouth Three times daily 30 C-Diff 04/29/17 Family History Relationship Name Date of Condition Age ( At Onset ) Cause of Age ( At ) Age Gender Recorded Date/Time FATHER Family history of diabetes mellitus M 04/29/17 1843 Social History Query Response Start Date Stop Date Smoking status: Former smoker Hospital Discharge Instructions No hospital discharge instructions. Plan of Care Discharge Date 04/29/17 Disposition 01-HOME, SELF-CARE,ASST LIVING Condition at Discharge Stable Instructions/Education Provided Stomach Ache and Stomach Upset Forms Provided Seen In ED Work Release Prescriptions See Medications Section Referrals [facility] - Call office to schedule Reason(s) for Referral: Notes: We have assigned you DR. Carter as a follow up physician. Please call the office. Tell them you were seen in the ER and let them know that we have referred you to Dr. Carter . Additional Instructions/Education Your workup today showed colitis or inflammation of your colon. A course of antibiotics will be given to cover for this. You should also start an [id number] antacid medication. return to the emergency department if you have worsening symptoms, fever, uncontrolled pain, or other new concerning lesions. Some of your test results may not [...] worrisome symptoms. * Emergency Department phone number: [phone] MEDICAL RECORD If you need copies of your X-rays, call [phone]. If you need copies of your medical record, including lab results, a signed authorization for release of records will be required. A telephone call for release of Health Information is not allowed. BILLING Billing can sometimes be confusing and frustrating. To help avoid confusion in the future, please take a moment to acquaint yourself with the billing parties for services. SERVICE BILLING [employer] Emergency Room Services [facility] ED Physician Services [phone] X-rays [facility] Patients will receive bills for services from the appropriate provider. If you have any questions about your [facility] bill, our staff will be happy to assist you. Please call [phone] and ask for the billing department. THANK YOU for choosing [facility] as your emergency care provider. Care Plan and Goals ~~Discharge Care Plan~~ Problem: Abdominal pain Goal: Decreased level of pain. Return to usual activities. Instructions: Take medication(s) as directed; follow up with primary care physician as directed; follow patient home care instructions. Functional Status No functional status results. Allergies, Adverse Reactions, Alerts Allergen Type Severity Reaction Status Last Updated Sulfa (Sulfonamide Antibiotics) Allergy Unknown rash Active 04/29/17 latex Allergy Severe swelling Active 04/29/17 Immunizations No Known History of Immunizations. Vital Signs Vital Reading Collection Date/Time Result Blood Pressure 04/29/17 10:49pm 126/91 Blood Pressure Source 04/29/17 10:49pm Sitting Temperature 04/29/17 6:23pm 98.3 F Temperature Source 04/29/17 6:23pm Oral Respiratory Rate 04/29/17 6:23pm 18 Pulse Rate 04/29/17 10:49pm 59 Pulse Location 04/29/17 10:49pm Pulse Oximetry Bedside Pulse Oximetry 04/29/17 10:49pm 94 Height 04/29/17 6:23pm 5 ft 9.02 in Height 04/29/17 6:23pm 175.3 cm Results Laboratory Results Test Name Result Units Flags Reference Collection Date/Time Result Date/Time Comments Urine Collection Type CLEAN CATCH 04/29/17 7:20pm 04/29/17 7:24pm Urine Color Yellow 04/29/17 7:20pm 04/29/17 7:36pm Urine Appearance Clear 04/29/17 7:20pm 04/29/17 7:36pm Urine Specific [place] 1.025 1.005-1.035 04/29/17 7:20pm 04/29/17 7:36pm Urine pH 5 5-8 04/29/17 7:20pm 04/29/17 7:36pm Urine Protein Negative NEGATIVE 04/29/17 7:20pm 04/29/17 7:36pm Urine Glucose Negative NEGATIVE 04/29/17 7:20pm 04/29/17 7:36pm Urine Ketones Negative NEGATIVE 04/29/17 7:20pm 04/29/17 7:36pm Urine Bilirubin Negative NEGATIVE 04/29/17 7:20pm 04/29/17 7:36pm Urine Urobilinogen Negative mg/dL NEGATIVE 04/29/17 7:20pm 04/29/17 7:36pm Urine Nitrate Negative NEGATIVE 04/29/17 7:20pm 04/29/17 7:36pm Urine Blood Negative NEGATIVE 04/29/17 7:20pm 04/29/17 7:36pm Urine Leukocyte Esterase Negative NEGATIVE 04/29/17 7:20pm 04/29/17 7:36pm Urine WBC 0-2 /hpf 04/29/17 7:20pm 04/29/17 7:36pm Urine RBC 0-2 /hpf 04/29/17 7:20pm 04/29/17 7:36pm Urine Squamous Epithelial Cells 0-2 /hpf 04/29/17 7:20pm 04/29/17 7:36pm Urine Mucus Present /lpf 04/29/17 7:20pm 04/29/17 7:36pm Urine Bacteria None Seen /hpf 04/29/17 7:20pm 04/29/17 7:36pm White Blood Count 9.4 K/mm3 4.8-10.8 04/29/17 7:00pm 04/29/17 7:14pm Red Blood Count 5.71 M/mm3 H 4.20-5.60 04/29/17 7:00pm 04/29/17 7:14pm Hemoglobin 17.0 g/dl 13.5-18.0 04/29/17 7:00pm 04/29/17 7:14pm Hematocrit 47.0 % 42.0-52.0 04/29/17 7:00pm 04/29/17 7:14pm Mean Corpuscular Volume 82 fl 80.0-100.0 04/29/17 7:00pm 04/29/17 7:14pm Mean Corpuscular Hemoglobin 30 pg 27.0-31.0 04/29/17 7:00pm 04/29/17 7:14pm Mean Corpuscular Hemoglobin Concent 36 g/dl 33.0-37.0 04/29/17 7:00pm 04/29/17 7:14pm Red Cell Distribution Width 12.3 % 11.5-14.5 04/29/17 7:00pm 04/29/17 7:14pm Platelet Count 238 K/mm3 130-400 04/29/17 7:00pm 04/29/17 7:14pm Mean Platelet Volume 10.4 fl 7.4-10.4 04/29/17 7:00pm 04/29/17 7:14pm Granulocytes (%) 44.4 % 42.2-75.2 04/29/17 7:00pm 04/29/17 7:14pm Lymphocytes % 34.0 % 20.0-51.0 04/29/17 7:00pm 04/29/17 7:14pm Monocytes % 11.4 % H 1.7-9.3 04/29/17 7:00pm 04/29/17 7:14pm Eosinophils % 8.9 % H 0-4.0 04/29/17 7:00pm 04/29/17 7:14pm Basophils % 1.0 % 0.0-2.0 04/29/17 7:00pm 04/29/17 7:14pm Granulocytes # 4.2 1.4-6.5 04/29/17 7:00pm 04/29/17 7:14pm Lymphocytes # 3.2 1.2-3.4 04/29/17 7:00pm 04/29/17 7:14pm Monocytes # 1.1 H 0.1-0.6 04/29/17 7:00pm 04/29/17 7:14pm Eosinophils # 0.8 H 0.0-0.7 04/29/17 7:00pm 04/29/17 7:14pm Basophils # 0.1 0.0-0.2 04/29/17 7:00pm 04/29/17 7:14pm Glucose Level 95 mg/dL 74-106 04/29/17 7:00pm 04/29/17 7:30pm Blood Urea Nitrogen 13 mg/dL 9-20 04/29/17 7:00pm 08/23/17 7:30pm Creatinine 0.88 mg/dL 0.66-1.25 04/29/17 7:00pm 04/29/17 7:30pm Estimated GFR () 122 04/29/17 7:00pm 04/29/17 7:30pm Estimated GFR (Non- 101 04/29/17 7:00pm 04/29/17 7:30pm eGFR Interpretation: Chronic Kidney Disease=CKD CKD STAGE [...] nutritional status. Sodium Level 141 mmol/L 137-145 04/29/17 7:00pm 04/29/17 7:30pm Potassium Level 3.6 mmol/L 3.4-5.0 04/29/17 7:00pm 04/29/17 7:30pm Chloride Level 105 mmol/L 98-107 04/29/17 7:00pm 04/29/17 7:30pm Carbon Dioxide Level 23 mmol/L 22-30 04/29/17 7:00pm 04/29/17 7:30pm Anion Gap 14 mmol/L 7-16 04/29/17 7:00pm 04/29/17 7:30pm Calcium Level 9.5 mg/dL 8.4-10.2 04/29/17 7:00pm 04/29/17 7:30pm Calcium Adjusted for Albumin 9.1 mg/dL 8.4-10.2 04/29/17 7:00pm 04/29/17 7:30pm Serum Total Protein 8.1 gm/dL 6.4-8.2 04/29/17 7:00pm 04/29/17 7:30pm Albumin 4.5 gm/dL 3.5-5.0 04/29/17 7:00pm 04/29/17 7:30pm Total Bilirubin 0.7 mg/dL 0.0-1.0 04/29/17 7:00pm 04/29/17 7:30pm Aspartate Amino Transf (AST/SGOT) 53 U/L H 15-37 04/29/17 7:00pm 04/29/17 7:30pm Alanine Aminotransferase (ALT/SGPT) 76 U/L H 21-72 04/29/17 7:00pm 04/29/17 7:30pm Alkaline Phosphatase 85 U/L 50-136 04/29/17 7:00pm 04/29/17 7:30pm Lipase 141 U/L 23-300 04/29/17 7:00pm 04/29/17 7:30pm Procedures No Known History of Procedures. Encounters Encounter Location Arrival/Admit Date Discharge/Depart Date Attending Provider Departed [facility] 04/29/17 6:18pm 04/29/17 10:49pm Delfino Ortiz MD Encounter Diagnosis Onset Date Abdominal pain Colitis
--- OUTSIDE RECORDS SUMMARY | 2019-03-02 21:53 | XMS REPORT | Continuity of Care Document ---
Author Author [facility] Organization [facility] Address [address] [place] [address] Phone Unavailable Care Team Providers Care Surveyor Hydrographic Name Role Phone TAMANNA COFFEY PA-C PCP Insurance Providers Payer Name Policy Number Subscriber Name Relationship Self Pay Chase Adam 18 Self / Same As Patient Advance Directives Directive Response Recorded Date/Time Advance Directives No 09/13/16 10:58pm Advance Directive on File No 03/18/17 3:34pm Durable POA for HC No 03/18/17 3:34pm Power of Warehouse Packaging Supervisor No 03/18/17 3:34pm Organ Donor Yes 03/18/17 3:34pm Living Will No 03/18/17 3:34pm Chief Complaint and Reason for Visit Chief Complaint Nausea,Vomiting,Diarrhea Reason for Visit [id number] Gastroenteritis Problems Active Problems Medical Problem Onset Date Status Arthralgia of left acromioclavicular joint Unknown Acute Depression with anxiety Unknown Acute Depression with suicidal ideation Unknown Acute Encounter for medical screening examination Unknown Acute Gabapentin overdose Unknown Acute Gastroenteritis Unknown Acute Medical clearance for psychiatric admission Unknown Acute Urinary tract infection, acute Unknown Acute Medications Current Home Medications Medication [...] as needed for Nausea / Vomiting 03/18/17 Past Home Medications Medication Directions Ordered Status [...] History Social History Problem Response Recorded Date/Time Alcohol Use none 03/18/2017 4:29pm Drug Use none 03/18/2017 4:29pm Smoking Status Former smoker 03/18/2017 3:38pm Smoked in the last 12 months? No 03/18/2017 3:38pm Do you dip or chew tobacco? Yes 03/18/2017 3:38pm Approx how many cigs per day? 0 03/18/2017 3:38pm Level of Dependence Low 03/18/2017 3:38pm Former smoker, last day smoked? 07/201603/18/2017 3:38pm Query Response Start Date Stop Date Smoking Status Former smoker Hospital Discharge Instructions No hospital discharge instructions. Plan of Care Discharge Date 03/18/17 5:34pm Disposition 01 D/C HOME Condition at Discharge Stable and Improved Instructions/Education Provided Urinary Tract Infection in Men (ED) Acute Nausea and Vomiting (ED) Forms Provided ER Discharge Phone Call Check Prescriptions See Medication Section Referrals TAMANNA COFFEY PA-C - Additional Instructions/Education Home to rest tonight Begin the antibiotic and make sure that you take the entire course even once you are feeling better Take your antibiotic 30 minutes after your nausea medication Drink small sips of sprite, 7-up, sugar free gatorade, or water. You may advance to a bland diet as tolerated Call to make an appointment with Sherly Coffey for f/u and evaluation Functional Status Query Response Date Recorded Activities of Daily Living Performs w/o Assistance March 18, 2017 3:39pm Cognitive Function Intact March 18, 2017 3:39pm Allergies, Adverse Reactions, Alerts Allergen Type Severity Reaction Status Last Updated Sulfa (Sulfonamide Antibiotics) ([id number]) Allergy Severe RASH Active 09/13/16 Latex Allergy Severe SWELLING Active 09/13/16 Immunizations No immunization records. Vital Signs Acute Vital Signs Vital Response Date/Time Temperature (Fahrenheit) 97.6 degrees F (97.6 - 99.5) 03/18/2017 5:29pm Temperature (Calculated Celsius) 36.41847 degrees C (36.4 - 37.5) 03/18/2017 5:29pm Temperature Source Temporal Artery Scan 03/18/2017 5:29pm Pulse Pulse Ox Pulse Rate (adult) 58 beats per minute (60 - 90) 03/18/2017 5:29pm Pulse Location Modifier Right 03/18/2017 5:29pm Oxygen Saturation Respiratory Rate 18 breaths per minute (12 - 24) 03/18/2017 5:29pm O2 Sat by Pulse Oximetry 97 % (90 - 100) 03/18/2017 5:29pm Blood Pressure 132/66 mm Hg 03/18/2017 5:29pm Blood Pressure Mean 88 mm Hg 03/18/2017 5:29pm Height 5 ft 9 in Weight 267 [...] VISIT Completed 09/24/16 ELECTROCARDIOGRAM REPORT Completed 09/24/16 Encounters Encounter Location Arrival/Admit Date Discharge/Depart Date Attending Provider Departed Emergency Room [facility] 03/18/17 3:30pm 03/18/17 5:34pm GHADA LOCKE APRN Departed Emergency Room [facility] 09/24/16 4:35pm 09/24/16 9:50pm GHADA LOCKE APRN Departed Emergency Room [facility] 09/13/16 10:55pm 09/14/16 12:36am CRISTIAN GARCIA APRN Recent Diagnosis
--- OUTSIDE RECORDS SUMMARY | 2019-03-02 21:54 | XMS REPORT | Clinical Summary ---
Author Author Admin, [facility] Organization All Address Unknown Phone Unavailable Allergies, Adverse Reactions, Alerts Allergy Name Reaction Description Start Date Severity Status Provider Allergies Unknown Conditions or Problems Problem Name Problem Code Onset Date Status Entry Date Provider Comment Standard Description Annotate Problems Unknown Active Medication List Medication Instructions Start Date Stop Date Generic Name NDC Status Provider Patient Instruction Drug Treatment Unknown - unknown
--- OUTSIDE RECORDS SUMMARY | 2019-03-02 21:54 | XMS REPORT | Continuity of Care Document ---
Author Author [email or web address]. Organization [email or web address]. Address [address] [place] [address] Phone Unavailable Care Team Providers Care Auditor Tax Name Role Phone Dwight Carter MD Unavailable Insurance Providers Payer Name Policy Number Subscriber Name Relationship [place] [id number] SAMSON OWENS SELF / SAME PATIENT Advance Directives Directive Response Recorded Date/Time Advance Directives: No 08/17/17 1:49pm Chief Complaint and Reason for Visit Reason for Visit Problems Active Medical Problems Problem Onset Date Recorded Date Status Abdominal pain Unknown 04/29/17 Active Colitis Unknown 04/29/17 Active C. difficile colitis Unknown 07/22/17 Active Medications Past Home Medications Medication Directions Ordered Status Ciprofloxacin (Cipro) 500 Mg Tablet Tablet, 500 Mg By Mouth Twice daily 04/29/17 Discontinued Desvenlafaxine Er (Pristiq) 50 Mg Tablet Tablet, 50 Mg By Mouth Once a day Unknown Discontinued Divalproex Er (Depakote Er) 500 Mg Tab.sr.24h Tab.sr.24h, 1,000 Mg By Mouth Once a day Unknown Discontinued Hydrocodone/Acetaminophen ([place]) 5 Mg/325 Mg Tablet Tablet, 1 Tab By Mouth Q4- 6 HR as needed for Pain 07/22/17 Discontinued Hydrocodone/Acetaminophen ([place]) 5 Mg/325 Mg Tablet Tablet, 1 Tab By Mouth Q4- 6 HR as needed for Pain 06/18/17 Discontinued Hydrocodone/Acetaminophen ([place]) 5 Mg/325 Mg Tablet Tablet, 1 Tab By Mouth Q4- 6 HR as needed for Pain 04/29/17 Discontinued Lurasidone (Latuda) 40 Mg Tablet Tablet, 40 Mg By Mouth Once a day Unknown Discontinued Ondansetron (Zofran Odt) 4 Mg Odt Odt, 4 Mg By Mouth Three times daily as needed for nausea 07/22/17 Discontinued Vancomycin (Vancocin) 125 Mg Capsule Capsule, 125 Mg By Mouth Four times a day 07/22/17 Discontinued Vancomycin (Vancocin) 125 Mg Capsule Capsule, [...] discharge instructions. Plan of Care Discharge Date 08/18/17 Disposition 65-XFR PSY HOSP/PSYCH UNIT Condition at Discharge Stable Prescriptions See Medications Section Referrals Dwight Carter MD - Functional Status Query Response Date Recorded Hand Mail Messenger Equal: Y July 22, 2017 9:36pm Allergies, Adverse Reactions, Alerts Allergen Type Severity Reaction Status Last Updated Sulfa (Sulfonamide Antibiotics) Allergy Unknown rash Active 08/17/17 latex Allergy Severe swelling Active 08/17/17 Immunizations No Known History of Immunizations. Vital Signs Vital Reading Collection Date/Time Result Blood Pressure 08/18/17 0:22am 121/71 Blood Pressure Source 08/17/17 9:20pm Sitting Temperature 08/17/17 1:49pm 98.2 F Temperature Source 08/17/17 1:49pm Oral Respiratory Rate 08/18/17 0:22am 16 Pulse Rate 08/18/17 0:22am 58 Pulse Location 08/17/17 1:49pm Pulse Oximetry Bedside Pulse Oximetry 08/18/17 0:22am 97 Height 08/17/17 1:49pm 5 ft 9.02 in Height 08/17/17 1:49pm 175.3 cm Weight 08/17/17 1:49pm 270 lb Weight 08/17/17 1:49pm 122.7 kg Body Mass Index 08/17/17 1:49pm 39.9 kg/m2 Results Laboratory Results Test Name Result Units Flags Reference Collection Date/Time Result Date/Time Comments White Blood Count 8.7 K/mm3 4.8-10.8 08/17/17 2:52pm 08/17/17 3:03pm Red Blood Count 5.89 M/mm3 H 4.20-5.60 08/17/17 2:52pm 08/17/17 3:03pm Hemoglobin 17.5 g/dl 13.5-18.0 08/17/17 2:52pm 08/17/17 3:03pm Hematocrit 50.2 % 42.0-52.0 08/17/17 2:52pm 08/17/17 3:03pm Mean Corpuscular Volume 85 fl 80.0-100.0 08/17/17 2:52pm 08/17/17 3:03pm Mean Corpuscular Hemoglobin 30 pg 27.0-31.0 08/17/17 2:52pm 08/17/17 3:03pm Mean Corpuscular Hemoglobin Concent 35 g/dl 33.0-37.0 08/17/17 2:52pm 08/17/17 3:03pm Red Cell Distribution Width 12.4 % 11.5-14.5 08/17/17 2:52pm 08/17/17 3:03pm Platelet Count 223 K/mm3 130-400 08/17/17 2:52pm 08/17/17 3:03pm Mean Platelet Volume 10.5 fl H 7.4-10.4 08/17/17 2:52pm 08/17/17 3:03pm Granulocytes (%) 59.9 % 42.2-75.2 08/17/17 2:52pm 08/17/17 3:03pm Lymphocytes % 25.2 % 20.0-51.0 08/17/17 2:52pm 08/17/17 3:03pm Monocytes % 7.7 % 1.7-9.3 08/17/17 2:52pm 08/17/17 3:03pm Eosinophils % 6.3 % H 0-4.0 08/17/17 2:52pm 08/17/17 3:03pm Basophils % 0.7 % 0.0-2.0 08/17/17 2:52pm 08/17/17 3:03pm Granulocytes # 5.2 1.4-6.5 08/17/17 2:52pm 08/17/17 3:03pm Lymphocytes # 2.2 1.2-3.4 08/17/17 2:52pm 08/17/17 3:03pm Monocytes # 0.7 H 0.1-0.6 08/17/17 2:52pm 08/17/17 3:03pm Eosinophils # 0.6 0.0-0.7 08/17/17 2:52pm 08/17/17 3:03pm Basophils # 0.1 0.0-0.2 08/17/17 2:52pm 08/17/17 3:03pm Glucose Level 99 mg/dL 74-106 08/17/17 2:52pm 08/17/17 3:27pm Blood Urea Nitrogen 9 mg/dL 9-20 08/17/17 2:52pm 08/17/17 3:27pm Creatinine 0.77 mg/dL 0.66-1.25 08/17/17 2:52pm 08/17/17 3:27pm Estimated GFR () 143 08/17/17 2:52pm 08/17/17 3:27pm Estimated GFR (Non- 118 08/17/17 2:52pm 08/17/17 3:27pm eGFR Interpretation: Chronic Kidney Disease=CKD CKD STAGE [...] muscle mass, or nutritional status. Sodium Level 139 mmol/L 137-145 08/17/17 2:52pm 08/17/17 3:27pm Potassium Level 3.9 mmol/L 3.4-5.0 08/17/17 2:52pm 08/17/17 3:27pm Chloride Level 106 mmol/L 98-107 08/17/17 2:52pm 08/17/17 3:27pm Carbon Dioxide Level 19 mmol/L L 22-30 08/17/17 2:52pm 08/17/17 3:27pm Anion Gap 13 mmol/L 7-16 08/17/17 2:52pm 08/17/17 3:27pm Calcium Level 9.9 mg/dL 8.4-10.2 08/17/17 2:52pm 08/17/17 3:27pm Calcium Adjusted for Albumin 9.1 mg/dL 8.4-10.2 08/17/17 2:52pm 08/17/17 3:27pm Serum Total Protein 8.3 gm/dL H 6.4-8.2 08/17/17 2:52pm 08/17/17 3:27pm Albumin 5.0 gm/dL 3.5-5.0 08/17/17 2:52pm 08/17/17 3:27pm Total Bilirubin 0.9 mg/dL 0.0-1.0 08/17/17 2:52pm 08/17/17 3:27pm Aspartate Amino Transf (AST/SGOT) 47 U/L H 15-37 08/17/17 2:52pm 08/17/17 3:27pm Alanine Aminotransferase (ALT/SGPT) 91 U/L H 21-72 08/17/17 2:52pm 08/17/17 3:27pm Alkaline Phosphatase 101 U/L 50-136 08/17/17 2:52pm 08/17/17 3:27pm Acetaminophen Level < 10 ug/mL L 07-0608/17/17 2:52pm 08/17/17 4:35pm Salicylates Level < 1.0 mg/dL 08/17/17 2:52pm 08/17/17 4:35pm Negative: <2 mg/dL Therapeutic: <20 mg/dL Toxic: >30 mg/dL Lethal: >60 mg/dL Plasma/Serum Blood Alcohol < 10 mg/dL 08/17/17 2:52pm 08/17/17 3:27pm Negative: <10 mg\dL Toxic: 50-100 mg\dL Depression of ASSISTANT FACILITY MANAGER: >100 mg\dL Fatalities Reported: >400 mg\dL Urine Collection Type CLEAN CATCH 07/22/17 10:00pm 07/22/17 10:17pm Urine Color Adela 07/22/17 10:00pm 07/22/17 10:38pm Urine Appearance Clear 07/22/17 10:00pm 07/22/17 10:38pm Urine Specific [place] 1.030 1.005-1.035 07/22/17 10:00pm 07/22/17 10:38pm Urine [...] None Seen /hpf 07/22/17 10:00pm 07/22/17 10:38pm Lipase 103 U/L 23-300 07/22/17 9:50pm 07/22/17 10:11pm Procedures No Known History of Procedures. Encounters Encounter Location Arrival/Admit Date Discharge/Depart Date Attending Provider Departed Emergency [facility] 08/17/17 1:44pm 08/18/17 0:25am Behzad Vasquez MD Departed Emergency [facility] 07/22/17 9:20pm 07/22/17 10:56pm Nivia Mulligan MD
--- OUTSIDE RECORDS SUMMARY | 2019-03-02 21:54 | XMS REPORT | Continuity of Care Document ---
Author [facility]. [facility]. Address [address] [place] [address] Phone Unavailable Care Team Providers Care Theology Professor Name Role Phone Dwight Carter MD Unavailable Insurance Providers Payer Name Policy Number Subscriber Name Relationship [place] [id number] SAMSON OWENS SELF / SAME PATIENT Advance Directives Directive Response Recorded Date/Time Advance Directives: No 08/28/17 2:41pm Chief Complaint and Reason for Visit Reason [...] Mouth Once a day Unknown Discontinued Hydrocodone/Acetaminophen ([place]) 5 Mg/325 Mg Tablet Tablet, 1 Tab By Mouth Q4- 6 HR as needed for Pain 07/22/17 Discontinued Hydrocodone/Acetaminophen ([place]) 5 Mg/325 Mg Tablet Tablet, 1 Tab By Mouth Q4- 6 HR as needed for Pain 06/18/17 Discontinued Hydrocodone/Acetaminophen ([place]) 5 Mg/325 Mg Tablet Tablet, 1 Tab [...] Response Start Date Stop Date Smoking status: Current some day smoker Hospital Discharge Instructions No hospital discharge instructions. Plan of Care Discharge Date 08/28/17 Disposition 65-XFR PSY HOSP/PSYCH UNIT Condition at Discharge Stable Prescriptions See Medications Section Referrals Dwight Carter MD - Functional Status Query Response Date Recorded Hand Steam Roller Operator Equal: Y July 22, 2017 9:36pm Allergies, Adverse Reactions, Alerts Allergen Type Severity Reaction Status Last Updated Sulfa (Sulfonamide Antibiotics) Allergy Unknown rash Active 08/28/17 latex Allergy Severe swelling Active 08/28/17 Immunizations No Known History of Immunizations. Vital Signs Vital Reading Collection Date/Time Result Blood Pressure 08/28/17 11:29pm 133/90 Blood Pressure Source 08/28/17 10:33pm Supine Temperature 08/28/17 10:33pm 97.5 F Temperature Source 08/28/17 10:33pm Oral Respiratory Rate 08/28/17 11:29pm 16 Pulse Rate 08/28/17 11:29pm 88 Pulse Location 08/28/17 11:29pm Pulse Oximetry Bedside Pulse Oximetry 08/28/17 11:29pm 98 Height 08/28/17 2:41pm 5 ft 9.02 in Height 08/28/17 2:41pm 175.3 cm Weight 08/28/17 2:41pm 260 lb Weight 08/28/17 2:41pm 118.2 kg Body Mass Index 08/28/17 2:41pm 38.5 kg/m2 Results Laboratory Results Test Name Result Units Flags Reference Collection Date/Time Result Date/Time Comments White Blood Count 10.0 K/mm3 4.8-10.8 08/28/17 4:07pm 08/28/17 4:17pm Red Blood Count 5.63 M/mm3 H 4.20-5.60 08/28/17 4:07pm 08/28/17 4:17pm Hemoglobin 16.8 g/dl 13.5-18.0 08/28/17 4:07pm 08/28/17 4:17pm Hematocrit 48.1 % 42.0-52.0 08/28/17 4:07pm 08/28/17 4:17pm Mean Corpuscular Volume 85 fl 80.0-100.0 08/28/17 4:07pm 08/28/17 4:17pm Mean Corpuscular Hemoglobin 30 pg 27.0-31.0 08/28/17 4:07pm 08/28/17 4:17pm Mean Corpuscular Hemoglobin Concent 35 g/dl 33.0-37.0 08/28/17 4:07pm 08/28/17 4:17pm Red Cell Distribution Width 12.2 % 11.5-14.5 08/28/17 4:07pm 08/28/17 4:17pm Platelet Count 248 K/mm3 130-400 08/28/17 4:07pm 08/28/17 4:17pm Mean Platelet Volume 10.1 fl 7.4-10.4 08/28/17 4:07pm 08/28/17 4:17pm Granulocytes (%) 75.1 % 42.2-75.2 08/28/17 4:07pm 08/28/17 4:17pm Lymphocytes % 15.7 % L 20.0-51.0 08/28/17 4:07pm 08/28/17 4:17pm Monocytes % 6.9 % 1.7-9.3 08/28/17 4:07pm 08/28/17 4:17pm Eosinophils % 1.4 % 0-4.0 08/28/17 4:07pm 08/28/17 4:17pm Basophils % 0.6 % 0.0-2.0 08/28/17 4:07pm 08/28/17 4:17pm Granulocytes # 7.5 H 1.4-6.5 08/28/17 4:07pm 08/28/17 4:17pm Lymphocytes # 1.6 1.2-3.4 08/28/17 4:07pm 08/28/17 4:17pm Monocytes # 0.7 H 0.1-0.6 08/28/17 4:07pm 08/28/17 4:17pm Eosinophils # 0.1 0.0-0.7 08/28/17 4:07pm 08/28/17 4:17pm Basophils # 0.1 0.0-0.2 08/28/17 4:07pm 08/28/17 4:17pm Glucose Level 102 mg/dL 74-106 08/28/17 4:07pm 08/28/17 4:37pm Blood Urea Nitrogen 10 mg/dL 9-08/28/17 4:07pm 08/28/17 4:37pm Creatinine 0.76 mg/dL 0.66-1.25 08/28/17 4:07pm 08/28/17 4:37pm Estimated GFR () 144 08/28/17 4:07pm 08/28/17 4:37pm Estimated GFR (Non- 119 08/28/17 4:07pm 08/28/17 4:37pm eGFR Interpretation: Chronic Kidney Disease=CKD CKD STAGE [...] muscle mass, or nutritional status. Sodium Level 137 mmol/L 137-145 08/28/17 4:07pm 08/28/17 4:37pm Potassium Level 3.8 mmol/L 3.4-5.0 08/28/17 4:07pm 08/28/17 4:37pm Chloride Level 105 mmol/L 98-107 08/28/17 4:07pm 08/28/17 4:37pm Carbon Dioxide Level 23 mmol/L -08/28/17 4:07pm 08/28/17 4:37pm Anion Gap 10 mmol/L 7-16 08/28/17 4:07pm 08/28/17 4:37pm Calcium Level 9.6 mg/dL 8.4-10.2 08/28/17 4:07pm 08/28/17 4:37pm Calcium Adjusted for Albumin 9.0 mg/dL 8.4-10.2 08/28/17 4:07pm 08/28/17 4:37pm Serum Total Protein 8.0 gm/dL 6.4-8.2 08/28/17 4:07pm 08/28/17 4:37pm Albumin 4.7 gm/dL 3.5-5.0 08/28/17 4:07pm 08/28/17 4:37pm Total Bilirubin 0.6 mg/dL 0.0-1.0 08/28/17 4:07pm 08/28/17 4:37pm Aspartate Amino Transf (AST/SGOT) 36 U/L 15-37 08/28/17 4:07pm 08/28/17 4:37pm Alanine Aminotransferase (ALT/SGPT) 56 U/L 21-72 08/28/17 4:07pm 08/28/17 4:37pm Alkaline Phosphatase 104 U/L 50-136 08/28/17 4:07pm 08/28/17 4:37pm Acetaminophen Level < 10 ug/mL L 07-0608/28/17 4:07pm 08/28/17 4:37pm Salicylates Level < 1.0 mg/dL 08/28/17 4:07pm 08/28/17 4:37pm Negative: <2 mg/dL Therapeutic: <20 mg/dL Toxic: >30 mg/dL Lethal: >60 mg/dL Plasma/Serum Blood Alcohol < 10 mg/dL 08/28/17 4:07pm 08/28/17 4:37pm Negative: <10 mg\dL Toxic: 50-100 mg\dL Depression of PANEL RAISER OPERATOR: >100 mg\dL Fatalities Reported: >400 mg\dL Procedures No Known History of Procedures. Encounters Encounter Location Arrival/Admit Date Discharge/Depart Date Attending Provider Departed Emergency [facility] 08/28/17 2:34pm 08/28/17 11:32pm Jesse Barger MD Departed Emergency [facility] 08/17/17 1:44pm 08/18/17 0:25am Behzad Vasquez MD
--- OUTSIDE RECORDS SUMMARY | 2019-03-02 21:54 | XMS REPORT | Continuity of Care Document ---
Demographics Preferred Language Unknown Marital Status Unknown Zoroastrianism Affiliation Unknown Race Unknown Ethnic Group Unknown Author Organization Unknown Address Unknown Allergies Active Description Code Type Severity Reaction Onset Reported/Identified Relationship to Patient Clinical Status Yes BACTRIM 91685274 BRANDNAME N/A N/A Yes LATEX 44202022 ENVIRONMENTAL N/A N/A Yes SULFA (sulfonamide) 31035828 CLASS N/A N/A Yes NO NAME AVAILABLE 57263 DRUG N/A N/A Yes Bactrim Drug N/A N/A Yes Latex Drug N/A N/A Yes sulfa drugs Drug N/A rash Yes Bactrim Drug N/A N/A Yes Latex Drug N/A N/A Yes sulfa drugs Drug N/A rash Yes LATEX 24768 DRUG INGREDI N/A Other 09/25/2016 09/25/2016 Yes LATEX 96783 DRUG INGREDI High Anaphylaxis 09/25/2016 09/25/2016 Yes SULFA ANTIBIOTICS 34 Drug Class N/A Other 09/25/2016 09/25/2016 Yes SULFA ANTIBIOTICS 34 Drug Class Low Rash 09/25/2016 09/25/2016 Yes TOMATO 66954 DRUG INGREDI~Food N/A NTV 09/25/2016 09/25/2016 Yes TOMATO 28791 DRUG INGREDI~Food N/A Other 09/25/2016 09/25/2016 Medications Medication Packaging Start Date Stop Date Route Dosage Sig ALUM T MAG HYDROXIDE-SIMETH 200-200-20 MG/5ML PO SUSP 09/25/2016 Oral 30 4 TIMES DAILY PRN TRAZODONE HCL 100 MG PO TABS 09/25/2016 Oral 100 BEDTIME PRN OLANZAPINE 10 MG PO TBDP 09/25/2016 Oral 10 2 TIMES DAILY PRN ACETAMINOPHEN 325 MG PO TABS 09/25/2016 Oral 650 EVERY 6 HOURS PRN MAGNESIUM HYDROXIDE 400 MG/5ML PO SUSP 09/25/2016 Oral 30 DAILY PRN QUETIAPINE FUMARATE 25 MG PO TABS 09/25/2016 Oral 25 4 TIMES DAILY PRN VENLAFAXINE HCL ER 75 MG PO CP24 09/25/2016 Oral 75 DAILY WITH BREAKFAST IBUPROFEN 400 MG PO TABS 09/25/2016 Oral 800 3 TIMES DAILY PRN HYDROXYZINE HCL 25 MG PO TABS 09/25/2016 Oral 25 3 TIMES DAILY PRN DIVALPROEX SODIUM ER 500 MG PO TB24 09/25/2016 Oral 500 DAILY AT 1900 DIVALPROEX SODIUM ER 500 MG PO TB24 09/26/2016 Oral 1000 DAILY AT 1900 QUETIAPINE FUMARATE 25 MG PO TABS 09/27/2016 Oral 12.5 4 TIMES DAILY PRN HYDROXYZINE HCL 25 MG PO TABS 09/27/2016 Oral 50 3 TIMES DAILY PRN PALIPERIDONE ER 3 MG PO TB24 09/28/2016 Oral 3 DAILY VENLAFAXINE HCL ER 150 MG PO CP24 09/29/2016 Oral 150 DAILY WITH BREAKFAST RISPERIDONE 0.5 MG PO TABS 09/29/2016 Oral 0.5 2 TIMES DAILY NICOTINE POLACRILEX 2 MG MT GUM 08/18/2017 Oral 2 EVERY 1 HOUR PRN NICOTINE POLACRILEX 2 MG MT LOZG 08/18/2017 Oral 2 EVERY 1 HOUR PRN ALUM T MAG HYDROXIDE-SIMETH 200-200-20 MG/5ML PO SUSP 08/18/2017 Oral 30 4 TIMES DAILY PRN TRAZODONE HCL 100 MG PO TABS 08/18/2017 Oral 100 BEDTIME PRN OLANZAPINE 10 MG PO TBDP 08/18/2017 Oral 10 2 TIMES DAILY PRN ACETAMINOPHEN 325 MG PO TABS 08/18/2017 Oral 650 EVERY 6 HOURS PRN MAGNESIUM HYDROXIDE 400 MG/5ML PO SUSP 08/18/2017 Oral 30 DAILY PRN QUETIAPINE FUMARATE 25 MG PO TABS 08/18/2017 Oral 25 4 TIMES DAILY PRN PALIPERIDONE PALMITATE 234 MG/1.5ML IM SUSP 08/18/2017 Intramuscular 234 ONCE DIVALPROEX SODIUM ER 500 MG PO TB24 08/18/2017 Oral 500 BEDTIME ALBUTEROL SULFATE HFA 108 (90 BASE) MCG/ACT IN AERS 08/19/2017 Inhalation 2 EVERY 6 HOURS PRN DIVALPROEX SODIUM ER 500 MG PO TB24 08/19/2017 Oral 1000 BEDTIME QUETIAPINE FUMARATE 25 MG PO TABS 08/20/2017 Oral 50 BEDTIME PALIPERIDONE PALMITATE 156 MG/ML IM SUSP 08/21/2017 Intramuscular 156 ONCE ALUM T MAG HYDROXIDE-SIMETH 200-200-20 MG/5ML PO SUSP 08/29/2017 Oral 30 4 TIMES DAILY PRN TRAZODONE HCL 100 MG PO TABS 08/29/2017 Oral 100 BEDTIME PRN OLANZAPINE 10 MG PO TBDP 08/29/2017 Oral 10 2 TIMES DAILY PRN ACETAMINOPHEN 325 MG PO TABS 08/29/2017 Oral 650 EVERY 6 HOURS PRN MAGNESIUM HYDROXIDE 400 MG/5ML PO SUSP 08/29/2017 Oral 30 DAILY PRN QUETIAPINE FUMARATE 25 MG PO TABS 08/29/2017 Oral 25 4 TIMES DAILY PRN NICOTINE POLACRILEX 2 MG MT GUM 08/29/2017 Oral 2 EVERY 1 HOUR PRN NAPROXEN 500 MG PO TABS 08/29/2017 Oral 250 EVERY 8 HOURS PRN NAPROXEN 500 MG PO TABS 08/29/2017 Oral 500 EVERY 12 HOURS PRN QUETIAPINE FUMARATE ER 50 MG PO TB24 08/29/2017 Oral 150 DAILY DIVALPROEX SODIUM ER 500 MG PO TB24 08/29/2017 Oral 1000 BEDTIME QUETIAPINE FUMARATE 100 MG PO TABS 08/29/2017 Oral 100 BEDTIME PALIPERIDONE PALMITATE 234 MG/1.5ML IM SUSP 09/18/2017 Intramuscular 234 ONCE Problems Date Dx Coded Attending Type Code Diagnosis Diagnosed By 09/12/2014 Dariana Harper Final 295.80 Other Specified Types of Schizophrenia, Unspecified State 09/12/2014 Dariana Harper Final 300.00 Anxiety State, Unspecified 09/12/2014 Dariana Harper Final 305.1 Tobacco Use Disorder 09/12/2014 Dariana Harper Final 311 Depressive Disorder, Not Elsewhere Classified 09/12/2014 Dariana Harper Final 314.01 Attention Deficit Disorder of Childhood with Hyperactivity 09/12/2014 Dariana Harper Final 530.81 Esophageal Reflux 09/12/2014 Dariana Harper Final 719.41 Pain in Joint Involving Shoulder Region 09/12/2014 Dariana Harper Final 840.9 Sprain of Unspecified Site of Shoulder and Upper Arm 09/12/2014 Dariana Harper Final E000.8 External cause status 09/12/2014 Dariana Harper Final E016.1 Activities involving gardening and landscaping 09/12/2014 Dariana Harper Final E849.0 Home Accidents 09/12/2014 Dariana Harper Final E927.3 Cumulative Trauma from Repetitive Motion 09/12/2014 Prewett, Dariana Final V43.3 Heart Valve Replaced by Other Means 09/12/2014 Meredith, Dariana Final V44.3 Colostomy Status 09/17/2014 Damon Hodges Final 345.90 Epilepsy, Unspecified, without Mention of Intractable Epilep 09/17/2014 Damon Hodges Final 466.0 Acute Bronchitis 09/17/2014 Damon Hodges Admitting 786.2 Cough 09/29/2016 TANJIM, ADELAIDE V 692680 Suicidal TANJIM, ADELAIDE 09/29/2016 TANJIM, ADELAIDE V F31.5 Bipolar disorder, current episode depressed, severe, with psychotic features (HCC) TANJIM, ADELAIDE 09/29/2016 TANJIM, ADELAIDE V F39 Unspecified mood (affective) disorder (HCC) TANJIM, ADELAIDE 09/29/2016 TANJIM, ADELAIDE V F41.1 Generalized anxiety disorder TANJIM, ADELAIDE 09/29/2016 TANJIM, ADELAIDE P R45.851 Suicidal ideations TANJIM, ADELAIDE 08/21/2017 DAVID ROSSI V 482216 Suicidal DAVID ROSSI 08/21/2017 DAVID ROSSI P F31.5 Bipolar disorder, current episode depressed, severe, with psychotic features (HCC) DAVID ROSSI 08/21/2017 DAVID ROSSI V F39 Unspecified mood (affective) disorder (HCC) DAVID ROSSI 09/01/2017 KABINS, MENDOZA B V 905122 Suicidal KABINS, MENDOZA B 09/01/2017 KABINS, MENDOZA B V F31.5 Bipolar disorder, current episode depressed, severe, with psychotic features (HCC) KABINS, MENDOZA B 09/01/2017 KABINS, MENDOZA B P R45.851 Suicidal ideations KABINS, MENDOZA B 12/01/2018 P K5900 Constipation, unspecified 12/01/2018 P K5900 Constipation, unspecified Procedures There is no data. Results Test Result Range TSH (REFLEX FREE T4 IF ABNORMAL) - 09/25/16 05:41 TSH 1.150 uIU/mL 0.400-4.000 VALPROIC ACID LEVEL, TOTAL - 09/29/16 06:00 VALPROIC ACID(DEPAKENE) 61 ug/mL 50-100 TSH (REFLEX FREE T4 IF ABNORMAL) - 08/18/17 05:43 TSH 1.595 uIU/mL 0.400-4.000 VALPROIC ACID LEVEL, TOTAL - 08/29/17 05:34 VALPROIC ACID(DEPAKENE) < ug/mL 50-100 Encounters ACCT No. Visit Date/Time Discharge Status Pt. Type Provider Facility Loc./Unit Complaint [id number] 12/03/2018 15:24:57 Document Registration [id number] 12/01/2018 20:59:12 Document Registration [id number] 12/01/2018 20:26:24 Document Registration [id number] 09/17/2018 10:14:32 Document Registration [id number] 05/19/2018 19:11:35 Document Registration [id number] 05/19/2018 19:07:02 Document Registration [id number] 05/10/2018 16:57:09 Document Registration [id number] 05/10/2018 15:14:09 Document Registration [id number] 09/17/2014 08:06:00 09/17/2014 09:23:00 DIS Emergency [facility] ER URI Symptoms [id number] 09/12/2014 13:56:00 09/12/2014 15:27:00 DIS Emergency [facility] ER Orthopedic [id number] 01/15/2015 08:52:51 Document Registration [id number] 12/03/2018 15:13:55 12/03/2018 23:59:59 CLS Outpatient Scooter Cartagena [id number] 09/17/2018 09:47:03 09/17/2018 23:59:59 CLS Outpatient Scooter Cartagena [id number] 08/09/2018 12:11:41 08/09/2018 23:59:59 CLS Outpatient Kong Esquivel [id number] 06/07/2018 17:17:41 06/07/2018 23:59:59 CLS Outpatient Kong Esquivel [id number] 03/11/2018 14:22:38 03/11/2018 23:59:59 CLS Outpatient Scooter Cartagena [id number] 08/29/2017 00:59:00 09/01/2017 17:25:00 DIS Inpatient KABINS, MENDOZA B [facility] [id number] 08/18/2017 01:28:00 08/21/2017 13:33:00 DIS Inpatient ROSSIDAVID [facility] [id number] 09/25/2016 00:02:00 09/29/2016 17:04:00 DIS Inpatient ADELAIDE REEDER [facility] [id number] 09/25/2016 00:26:19 Document Registration [id number] 01/23/2015 11:11:18 01/23/2015 23:59:59 CLS Outpatient Wolf Brig[facility] MTO congestion,sore throat dl [id number] 10/23/2014 14:07:53 Document Registration [id number] 03/01/2019 16:00:00 ACT Outpatient ALIYA MCALLISTER [facility] [place]
--- OUTSIDE RECORDS SUMMARY | 2019-03-02 21:54 | XMS REPORT | Continuity of Care Document ---
Author Author [facility]. Organization [facility]. 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 Name Role Phone Dwight Carter MD Unavailable Insurance Providers Payer Name Policy Number Subscriber Name Relationship [place] [id number] SAMSON OWENS SELF / SAME PATIENT Advance Directives Directive Response Recorded Date/Time Advance Directives: Unknown 06/18/17 11:52am Chief Complaint and Reason for Visit Reason [...] MG By Mouth Once a day HYDROcodone/Acetaminophen ([place]) 5 MG/325 MG TABLET 1 TAB By Mouth Q4-6 HR as needed for Pain 10 06/18/17 Lurasidone (Latuda) 40 MG TABLET 40 MG By Mouth Once a day Vancomycin (Vancocin) 125 MG CAPSULE 125 MG By Mouth Four times a day 40 06/18/17 Past Home Medications Medication Directions Ordered Status Ciprofloxacin (Cipro) 500 Mg Tablet Tablet, 500 Mg By Mouth Twice daily 04/29/17 Discontinued Hydrocodone/Acetaminophen ([place]) 5 Mg/325 Mg Tablet Tablet, 1 Tab By Mouth Q4- 6 HR as needed for Pain 04/29/17 Discontinued Metronidazole (Flagyl) 500 Mg Tablet Tablet, 500 Mg By Mouth Three times daily 04/29/17 Discontinued Family History Relationship Name Date of Condition Age ( At Onset ) Cause of Age ( At ) Age Gender Recorded Date/Time FATHER Family history of diabetes mellitus M 04/29/17 [age] Social History Query Response Start Date Stop Date Smoking status: Former smoker Hospital Discharge Instructions No hospital discharge instructions. Plan of Care Discharge Date 06/18/17 Disposition 01-HOME, SELF-CARE,ASST LIVING Condition at Discharge Stable Instructions/Education Provided Antibiotic-Associated Diarrhea (C. difficile Infection) Prescriptions See Medications Section Referrals Dwight Carter MD - Additional Instructions/Education 1. drink lots of fluids 2. take antibiotics as directed 3. See Dr. Gonzalez when you can Some of your test results may not [...] worrisome symptoms. * Emergency Department phone number: [phone] MEDICAL RECORD If you need copies of your X-rays, call [phone]. If you need copies of your medical record, including lab results, a signed authorization for release of records will be required. A telephone call for release of Health Information is not allowed. BILLING Billing can sometimes be confusing and frustrating. To help avoid confusion in the future, please take a moment to acquaint yourself with the billing parties for services. [employer] Emergency Room Services [facility] ED Physician Services [phone] X-rays [facility] Patients will receive bills for services from the appropriate provider. If you have any questions about your [facility] bill, our staff will be happy to assist you. Please call [phone] and ask for the billing department. THANK YOU for choosing [facility] as your emergency care provider. Functional Status No functional status results. Allergies, Adverse Reactions, Alerts Allergen Type Severity Reaction Status Last Updated Sulfa (Sulfonamide Antibiotics) Allergy Unknown rash Active 06/18/17 latex Allergy Severe swelling Active 06/18/17 Immunizations No Known History of Immunizations. Vital Signs Vital Reading Collection Date/Time Result Blood Pressure 06/18/17 11:52am 151/104 Blood Pressure Source 06/18/17 11:52am Sitting Temperature 06/18/17 11:52am 98.2 F Temperature Source 06/18/17 11:52am Oral Respiratory Rate 06/18/17 11:52am 16 Pulse Rate 06/18/17 3:02pm 59 Bedside Pulse Oximetry 06/18/17 3:02pm 98 Height 06/18/17 11:52am 5 ft 9 in Height 06/18/17 11:52am 175.26 cm Weight 06/18/17 11:52am 270 lb Weight 06/18/17 11:52am 122.7 kg Body Mass Index 06/18/17 11:52am 39.9 kg/m2 Results Laboratory Results Test Name Result Units Flags Reference Collection Date/Time Result Date/Time Comments White Blood Count 7.2 K/mm3 4.8-10.8 06/18/17 12:42pm 06/18/17 1:00pm Red Blood Count 5.70 M/mm3 H 4.20-5.60 06/18/17 12:42pm 06/18/17 1:00pm Hemoglobin 17.0 g/dl 13.5-18.0 06/18/17 12:42pm 06/18/17 1:00pm Hematocrit 49.1 % 42.0-52.0 06/18/17 12:42pm 06/18/17 1:00pm Mean Corpuscular Volume 86 fl 80.0-100.0 06/18/17 12:42pm 06/18/17 1:00pm Mean Corpuscular Hemoglobin 30 pg 27.0-31.0 06/18/17 12:42pm 06/18/17 1:00pm Mean Corpuscular Hemoglobin Concent 35 g/dl 33.0-37.0 06/18/17 12:42pm 06/18/17 1:00pm Red Cell Distribution Width 12.5 % 11.5-14.5 06/18/17 12:42pm 06/18/17 1:00pm Platelet Count 222 K/mm3 130-400 06/18/17 12:42pm 06/18/17 1:00pm Mean Platelet Volume 10.6 fl H 7.4-10.4 06/18/17 12:42pm 06/18/17 1:00pm Granulocytes (%) 47.0 % 42.2-75.2 06/18/17 12:42pm 06/18/17 1:00pm Lymphocytes % 30.8 % 20.0-51.0 06/18/17 12:42pm 06/18/17 1:00pm Monocytes % 11.7 % H 1.7-9.3 06/18/17 12:42pm 06/18/17 1:00pm Eosinophils % 9.3 % H 0-4.0 06/18/17 12:42pm 06/18/17 1:00pm Basophils % 0.8 % 0.0-2.0 06/18/17 12:42pm 06/18/17 1:00pm Granulocytes # 3.4 1.4-6.5 06/18/17 12:42pm 06/18/17 1:00pm Lymphocytes # 2.2 1.2-3.4 06/18/17 12:42pm 06/18/17 1:00pm Monocytes # 0.8 H 0.1-0.6 06/18/17 12:42pm 06/18/17 1:00pm Eosinophils # 0.7 0.0-0.7 06/18/17 12:42pm 06/18/17 1:00pm Basophils # 0.1 0.0-0.2 06/18/17 12:42pm 06/18/17 1:00pm Glucose Level 96 mg/dL 74-106 06/18/17 12:42pm 06/18/17 1:03pm Blood Urea Nitrogen 9 mg/dL 9-20 06/18/17 12:42pm 06/18/17 1:03pm Creatinine 0.81 mg/dL 0.66-1.25 06/18/17 12:42pm 06/18/17 1:03pm Estimated GFR () 134 06/18/17 12:42pm 06/18/17 1:03pm Estimated GFR (Non- 111 06/18/17 12:42pm 06/18/17 1:03pm eGFR Interpretation: Chronic Kidney Disease=CKD CKD STAGE [...] muscle mass, or nutritional status. Sodium Level 140 mmol/L 137-145 06/18/17 12:42pm 06/18/17 1:03pm Potassium Level 4.0 mmol/L 3.4-5.0 06/18/17 12:42pm 06/18/17 1:03pm Chloride Level 107 mmol/L 98-107 06/18/17 12:42pm 06/18/17 1:03pm Carbon Dioxide Level 23 mmol/L 22-30 06/18/17 12:42pm 06/18/17 1:03pm Anion Gap 10 mmol/L 7-16 06/18/17 12:42pm 06/18/17 1:03pm Calcium Level 9.0 mg/dL 8.4-10.2 06/18/17 12:42pm 06/18/17 1:03pm Calcium Adjusted for Albumin 8.8 mg/dL 8.4-10.2 06/18/17 12:42pm 06/18/17 1:03pm Serum Total Protein 7.5 gm/dL 6.4-8.2 06/18/17 12:42pm 06/18/17 1:03pm Albumin 4.2 gm/dL 3.5-5.0 06/18/17 12:42pm 06/18/17 1:03pm Total Bilirubin 0.8 mg/dL 0.0-1.0 06/18/17 12:42pm 06/18/17 1:03pm Aspartate Amino Transf (AST/SGOT) 57 U/L H 15-37 06/18/17 12:42pm 06/18/17 1:03pm Alanine Aminotransferase (ALT/SGPT) 82 U/L H 21-72 06/18/17 12:42pm 06/18/17 1:03pm Alkaline Phosphatase 78 U/L 50-136 06/18/17 12:42pm 06/18/17 1:03pm Lipase 83 U/L 23-300 06/18/17 12:42pm 06/18/17 1:03pm C-Reactive Protein 1.2 mg/dL H 0.0-0.9 06/18/17 12:42pm 06/18/17 1:03pm Procedures No Known History of Procedures. Encounters Encounter Location Arrival/Admit Date Discharge/Depart Date Attending Provider Departed Emergency [facility] 06/18/17 11:51am 06/18/17 3:01pm Jesse Barger MD Encounter Diagnosis Onset Date Colitis
--- OUTSIDE RECORDS SUMMARY | 2019-03-02 21:54 | XMS REPORT ---
Author Author TAMANNA LACKEY [facility] Address [address] [place] [address] Care Team Providers Care Hospitalist Nocturnist Physician Name Role Phone TAMANNA LACKEY Unavailable PROBLEMS Type Condition ICD9-CM Code QUB44-WN Code Onset Dates Condition Status SNOMED Code Problem Gastroesophageal reflux disease, esophagitis presence not specified K21.9 Active 489172317 Problem Pain in left shoulder M25.512 Active 70307258 Problem Mild persistent asthma without complication J45.30 Active 504529753 Problem Mixed hyperlipidemia E78.2 Active 533436076 ALLERGIES Substance Reaction Event Type Date Status Sulfamethoxazole-Trimethoprim hives Drug Allergy Feb, Active ENCOUNTERS Encounter Location Date Diagnosis [facility] [id number] [id number] Feb, Mixed hyperlipidemia E78.2 ; Mild persistent asthma without complication J45.30 ; Gastroesophageal reflux disease, esophagitis presence not specified K21.[address] [facility] [address] [id number] [id number] 16 Jan, 2017 Annual physical exam Z00.00 [facility] [address] [facility] [id number] [id number] Dec, Mild persistent asthma without complication J45.30 ; Pain in left shoulder M25.512 and Annual physical exam Z00.00 [facility] [address] [facility] [id number] [place] [address] Dec, IMMUNIZATIONS No Known Immunizations SOCIAL HISTORY Never Assessed REASON FOR VISIT Pt states hes been shaking lately and wants to discuss-Dneal,RN PLAN OF CARE Activity Details Follow Up 6 Months Reason:asthma VITAL SIGNS Height 69 in 2017-03-02 Weight 273 lbs 2017-03-02 Temperature 98.2 degrees Fahrenheit 2017-03-02 Heart Rate 74 bpm 2017-03-02 Respiratory Rate 18 2017-03-02 BMI 40.31 kg/m2 2017-03-02 Blood pressure systolic 128 mmHg 2017-03-02 Blood pressure diastolic 82 mmHg 2017-03-02 MEDICATIONS Medication Instructions Dosage Frequency Start Date End Date Duration Status Flovent HFA 110 MCG/ACT Inhalation Twice a day 2 puffs 12h Dec, Mar, 30 days Active Proventil HFA 108 (90 Base) MCG/ACT Inhalation every 4 hrs 2 puffs as needed (use cheapest) 4h Dec, 30 days Active Depakote ER 500 mg Orally Once a day 2 tablets 24h Active Latuda 40 MG Orally Once a day 1 tablet with food 24h Active Pristiq 50 MG Orally Once a day 1 tablet 24h Active Benztropine Mesylate 1 MG Orally Once a day 1 tablet at bedtime 24h Active Trazodone HCl 50 MG Orally Once a day 1 tablet at bedtime as needed 24h Active Omeprazole 20 MG Orally Once a day 1 capsule 24h Feb, 30 day(s) Active RESULTS No Results PROCEDURES No Known procedures INSTRUCTIONS MEDICATIONS ADMINISTERED No Known Medications MEDICAL (GENERAL) HISTORY Type Description Date Medical History bipolar Medical History anxiety Medical History asthma Medical History spine issues Surgical History heart surgery x2 (infant) Surgical History reconstructed anus (infant) Surgical History bowel surgery (age 18) Surgical History tethered spinal chord (age 11) Surgical History tubes in ears Hospitalization History surgeries Hospitalization History mental health Hospitalization History bowel blockages (multiple hosp)
[2019-03-02 21:56] LABS: ALANINE AMINOTRANSFERASE 18 U/L (0-55); ALBUMIN 4.5 GM/DL (3.2-4.5); ALKALINE PHOSPHATASE 77 U/L (40-136); BILIRUBIN,TOTAL 0.4 MG/DL (0.1-1.0); BUN/CREATININE RATIO 10; CALCIUM 10.1 MG/DL (8.5-10.1); CARBON DIOXIDE 21 MMOL/L (21-32); CHLORIDE 106 MMOL/L (98-107); CREATININE SERUM 0.86 MG/DL (0.60-1.30); GFR ESTIMATED > 60; GLUCOSE 99 MG/DL (70-105); POTASSIUM 3.6 MMOL/L (3.6-5.0); SALICYLATE < 5.0 MG/DL (5.0-20.0); SODIUM 139 MMOL/L (135-145); TOTAL PROTEIN 7.6 GM/DL (6.4-8.2)
[2019-03-02 21:57] LABS: AMPHETAMINE SCREEN, URINE NEGATIVE (NEGATIVE); BARBITURATE SCREEN URINE NEGATIVE (NEGATIVE); BENZODIAZEPINES SCREEN URINE NEGATIVE (NEGATIVE); CANNABINOID SCREEN, URINE POSITIVE (NEGATIVE); COCAINE SCREEN URINE NEGATIVE (NEGATIVE); METHADONE STAT NEGATIVE (NEGATIVE); METHAMPHETAMINE SCREEN URINE S NEGATIVE (NEGATIVE); OPIATE SCREEN URINE NEGATIVE (NEGATIVE); OXYCODONE STAT NEGATIVE (NEGATIVE); PROPOXYPHENE STAT NEGATIVE (NEGATIVE); TRICYCLIC ANTIDEPRESSANTS SCRE NEGATIVE (NEGATIVE)
[2019-03-02 21:58] LABS: ACETAMINOPHEN < 10 UG/ML (10-30)
[2019-03-02 22:38] VITALS: BP 132/87
== END 2019-03-02 22:38 ==
LOC: ER 20:56
DX: R45.851 Suicidal ideations (principal); F32.9 Major depressive disorder, single episode, unspecified; F12.10 Cannabis abuse, uncomplicated; Z88.2 Allergy status to sulfonamides; Z91.040 Latex allergy status
CPT/HCPCS: 36415; 80053; 80178; 80306; 80320; 80329; 81000; 85025; 93005